=== PATIENT | male | born 1945 | race Hispanic/Latino ===

== ENCOUNTER 2017-05-05 11:12 | Emergency (ER) | payer MEDICARE ==
[2017-05-05 11:15] VITALS: BMI 32.9
[2017-05-05 11:17] VITALS: O2SAT 98
[2017-05-05] MEDS ORDERED: Silver Nitrate Topical - Stick TOP ONE (11:36)
--- NOTE | 2017-05-05 11:37 | ED PDOC ---
HPI: CCC, URI, Sore Throat Time Seen by Provider: 05/05/17 11:23 Chief Complaint (Nursing): ENT Problem Chief Complaint (Provider): Nasal bleeding History Per: Patient Additional Complaint(s): 71 yo mal, PMH of CAD, HTN, presents to ED with complaints of intermittent nasal bleeding from the right nare since . Pt reports that he has a history of epistaxis and he has been seen and cauterized by [facility] in the past. Pt using [place] nasal spray to help with the dry environment from his AC. Pt reports that the bleeding always seems to stop within minutes after holding pressure, and always starts in the morning. Pt started at 9 am today and arrives without any bleeding to ED room. No physical complaints offered at this time, vitals stable upon arrival. Past Medical History Reviewed: Nursing Documentation, Vital Signs Vital Signs: Last Vital Signs Temp 98 F 05/05/17 11:13 Pulse 70 05/05/17 11:13 Resp BP 150/79 05/05/17 11:13 Pulse Ox 98 05/05/17 11:42 - Medical History PMH: HTN, Hypothyroidism - Family History Family History: States: Unknown Family Hx - Living Arrangements Living Arrangements: With Family - Social History Current smoker - smoking cessation education provided: No Alcohol: None Drugs: Denies - Home Medications Home Medications: Ambulatory Orders Medication Instructions Recorded Calcitriol [Rocaltrol] 0.25 mcg PO DAILY 03/22/16 Furosemide [Lasix] 20 mg PO DAILY 03/22/16 Labetalol [Trandate] 800 mg PO TID 03/22/16 Levothyroxine [Synthroid] 75 mcg PO DAILY 03/22/16 Losartan [Cozaar] 100 mg PO DAILY 03/22/16 hydrALAZINE [hydralazine mg PO TID 03/22/16 Hydrochloride] - Allergies Allergies/Adverse Reactions: Allergies Allergy/AdvReac Type Severity Reaction Status Date / Time Penicillins Allergy RASH Verified 05/05/17 11:15 Review of Systems ROS Statement: Except As Marked, All Systems Reviewed And Found Negative ENT: Positive for: Nose Discharge Physical Exam - Reviewed Nursing Documentation Reviewed: Yes Vital Signs Reviewed: Yes - Physical Exam Appears: Positive for: Well, Non-toxic, No Acute Distress Head Exam: Positive for: ATRAUMATIC, NORMAL INSPECTION, NORMOCEPHALIC Skin: Positive for: Normal Color, Warm, DRY Eye Exam: Positive for: EOMI, Normal appearance, PERRL ENT: Positive for: Other ((+) bleeding site identified to right anterior nare) Neck: Positive for: Normal, Painless ROM Cardiovascular/Chest: Positive for: Regular Rate, Rhythm Respiratory: Positive for: CNT, Normal Breath Sounds Gastrointestinal/Abdominal: Positive for: Normal Exam, Bowel Sounds, Soft Back: Positive for: Normal Inspection Extremity: Positive for: Normal ROM Neurologic/Psych: Positive for: Alert, Oriented - ECG O2 Sat by Pulse Oximetry: 98 Medical Decision Making Medical Decision Making: Silver nitrate applied to anterior nare. no bleeding on re-eval. Stable for disharge ta this time, Pt advised to follow up with Dr. Arriola Disposition - Clinical Impression Clinical Impression: Epistaxis - Patient ED Disposition Is Patient to be Admitted: No - Disposition Referrals: Shane Arriola MD [Staff Provider] - Ericka Jordan [Outside] Disposition: Routine/Home Disposition Time: 12:33 Condition: STABLE Instructions: Nosebleed (ED) Forms: [facility] (Kiswahili)
[2017-05-05] MEDS ORDERED: Silver Nitrate Topical - Stick ONE (11:49)
[2017-05-05 12:46] VITALS: BP 128/78; PULSE 78; RESP 18; TEMP 97.5
== END 2017-05-05 12:46 | disposition home or self-care (01) ==
LOC: H.ER 11:12
DX: R04.0 Epistaxis (principal)

== ENCOUNTER 2017-06-13 05:58 | Emergency (ER) | payer MEDICARE ==
[2017-06-13 05:58] VITALS: BMI 32.9
[2017-06-13 06:17] VITALS: RESP 18; TEMP 99; O2SAT 99
[2017-06-13] MEDS ORDERED: Phenylephrine 0.5% Nasal Spray NAS STA (06:31)
[2017-06-13] MEDS ORDERED: Silver Nitrate Topical - Stick TOP ONE (06:37)
--- NOTE | 2017-06-13 06:55 | ED PDOC ---
HPI: Nose Bleed Time Seen by Provider: 06/13/17 06:15 Chief Complaint (Nursing): ENT Problem Chief Complaint (Provider): Epistaxis History Per: Patient History/Exam Limitations: no limitations Onset/Duration Of Symptoms: Hrs (4) Location Of Bleeding: Both Nares Symptoms Have Been: Episodic Severity: Moderate Additional Complaint(s): Patient is a 71 y/o male with a past medical history of hypertension and epistaxis presenting to the emergency department for right sided epistaxis x4 hours. Reports attempting to apply pressure and ice with minimal relief. Also reports similar episodes in the past which has been controlled by localized nasal packing and topical silver nitrate. Denies chest pain, cough, shortness of breath, or other complaints. Of note, patient takes baby aspirin and no other blood thinners. PCP: Dr. Sameer Ellsworth Past Medical History Reviewed: Historical Data, Nursing Documentation, Vital Signs Vital Signs: Last Vital Signs Temp 99.0 F 06/13/17 06:13 Pulse 68 06/13/17 06:13 Resp 18 06/13/17 06:13 BP 156/80 H 06/13/17 06:13 Pulse Ox 99 06/13/17 06:13 - Medical History PMH: HTN, Hypothyroidism Other PMH: Epistaxis - Surgical History Surgical History: No Surg Hx - Family History Family History: States: Unknown Family Hx - Social History Current smoker - smoking cessation education provided: No Ex-Smoker (has not smoked in the last 12 months): No Alcohol: None Drugs: Denies - Home Medications Home Medications: Ambulatory Orders Medication Instructions Recorded Calcitriol [Rocaltrol] 0.25 mcg PO DAILY 03/22/16 Furosemide [Lasix] 20 mg PO DAILY 03/22/16 Labetalol [Trandate] 800 mg PO TID 03/22/16 Levothyroxine [Synthroid] 75 mcg PO DAILY 03/22/16 Losartan [Cozaar] 100 mg PO DAILY 03/22/16 hydrALAZINE [hydralazine mg PO TID 03/22/16 Hydrochloride] - Allergies Allergies/Adverse Reactions: Allergies Allergy/AdvReac Type Severity Reaction Status Date / Time Penicillins Allergy RASH Verified 06/13/17 06:13 Review of Systems ROS Statement: Except As Marked, All Systems Reviewed And Found Negative ENT: Positive for: Other (right sided nose bleed) Cardiovascular: Negative for: Chest Pain Respiratory: Negative for: Cough, Shortness of Breath Physical Exam - Reviewed Nursing Documentation Reviewed: Yes Vital Signs Reviewed: Yes - Physical Exam Appears: Positive for: Non-toxic, No Acute Distress Head Exam: Positive for: ATRAUMATIC, NORMAL INSPECTION, NORMOCEPHALIC Skin: Positive for: Warm, Dry, Pallor (mild). Negative for: Normal Color Eye Exam: Positive for: Normal appearance ENT: Positive for: Other (Active epistaxis from right nare with trace bleeding from left nare) Neck: Positive for: Normal Cardiovascular/Chest: Positive for: Regular Rate, Rhythm. Negative for: Murmur Respiratory: Positive for: Normal Breath Sounds. Negative for: Accessory Muscle Use, Respiratory Distress Extremity: Positive for: Normal ROM. Negative for: Pedal Edema Neurologic/Psych: Positive for: Alert, Oriented (x3) - ECG O2 Sat by Pulse Oximetry: 99 (RA) Pulse Ox Interpretation: Normal Medical Decision Making Medical Decision Making: Time: 06:31 Initial impression: 71 y/o male with hypertension and history of epistaxis presenting with an episode of right sided epistaxis. Initial plan: Kalia-Synephrine 2 nasal sprays Silver Nitrate 1 swab Reevaluation Patient prefers not to use nasal packing and requests trial of topical silver nitrate. 06:45 Provider cleaned patient's right nare and has supplied silver nitrate and kalia- synephrine drops. Reevaluation pending. Scribe Attestation: Documented by Shirin Joshua, acting as a scribe for Antwon Hughes MD. Provider Scribe Attestation: All medical record entries made by the Scribe were at my direction and personally dictated by me. I have reviewed the chart and agree that the record accurately reflects my personal performance of the history, physical exam, medical decision making, and the department course for this patient. I have also personally directed, reviewed, and agree with the discharge instructions and disposition. Disposition - Clinical Impression Clinical Impression: Epistaxis - Patient ED Disposition Is Patient to be Admitted: Transfer of Care - Disposition Referrals: Prashant Pond MD [Staff Provider] - Laureano Ellsworth MD [Primary Care Provider] - Disposition: Transfer of Care Disposition Time: 07:00 Condition: STABLE Additional Instructions: Avoid blowing or "picking" your nose. Use nasal saline spray 2x daily to keep nasal mucosa moist. See ENT doctor for evaluation of recurrent nose bleeds. Instructions: Nosebleed (ED) Forms: [facility] (Greek) Patient Signed Over To: Galo Reynoso III
--- NOTE | 2017-06-13 07:05 | ED PDOC ---
- ECG O2 Sat by Pulse Oximetry: 99 (RA) Medical Decision Making Medical Decision Making: Patient signed out to provider at 7am pending re-eval 08:00 Upon provider reevaluation patient is feeling better and has no further epistaxis. Patient also has no bleeding to both nostrils. Patient only takes baby aspirin. Patient is medically stable and requires no further treatment in the ED at this time. Patient will be discharged home with referral to ENT. There is agreement to discharge plan. Return if symptoms persist or worsen. Scribe~Attestation Documented by Adrienne Mederos acting as a scribe for Galo Reynoso MD Provider~Attestation All medical record entries made by the Scribe were at my direction and personally dictated by me. I have reviewed the chart and agree that the record accurately reflects my personal performance of the history, physical exam, medical decision making, and the department course for this patient. I have also personally directed, reviewed, and agree with the discharge instructions and disposition. Disposition - Clinical Impression Clinical Impression: Epistaxis - Disposition Referrals: Prashant Pond MD [Staff Provider] - Laureano Ellsworth MD [Primary Care Provider] - Disposition: Routine/Home Disposition Time: 08:00 Condition: STABLE Additional Instructions: Avoid blowing or "picking" your nose. Use nasal saline spray 2x daily to keep nasal mucosa moist. See ENT doctor for evaluation of recurrent nose bleeds. Instructions: Nosebleed (ED) Forms: [facility] (Belarusian)
[2017-06-13 07:59] VITALS: BP 150/84; PULSE 70
== END 2017-06-13 08:08 | disposition home or self-care (01) ==
LOC: H.ER 05:58
DX: R04.0 Epistaxis (principal); E03.9 Hypothyroidism, unspecified; I10 Essential (primary) hypertension; Z88.0 Allergy status to penicillin

== ENCOUNTER 2017-07-10 07:11 | Emergency (ER) | payer MEDICARE ==
[2017-07-10 07:11] VITALS: BMI 32.9
[2017-07-10 08:48] LABS: BASO # 0.1 K/uL (0.0-0.2); BASO % 0.5 % (0.0-2.0); EOS # 0.1 K/uL (0.0-0.7); EOS % 0.6 % (0.0-4.0); HEMATOCRIT 34.9 % (35.0-51.0); LYMPH # 0.7 K/uL (1.0-4.3); LYMPH % 6.3 % (20.0-40.0); MEAN CELL VOLUME 88.3 fl (80.0-94.0); MEAN CORPUSCULAR HEMOGLOBIN 29.8 pg (27.0-31.0); MEAN CORPUSCULAR HGB CONC 33.7 g/dL (33.0-37.0); MEAN PLATELET VOLUME 9.4 fl (7.2-11.7); MONO # 0.5 K/uL (0.0-0.8); MONO % 4.1 % (0.0-10.0); NEUT # 10.2 K/uL (1.8-7.0); NEUT % 88.5 % (50.0-75.0); NRBC % 0.1 % (0.0-0.0); PLATELET COUNT 254 K/uL (130-400); RED CELL DISTRIBUTION WIDTH 14.2 % (11.5-14.5); WHITE BLOOD COUNT 11.5 K/uL (4.8-10.8)
[2017-07-10 08:58] LABS: BLOOD UREA NITROGEN 29 mg/dl (9-20); CALCIUM 9.2 mg/dL (8.4-10.2); CARBON DIOXIDE 25 mmol/L (22-30); CHLORIDE 99 mmol/L (98-107); GFR AFRICAN-AMERICAN > 60; GLUCOSE,RANDOM 110 mg/dL (75-110); SODIUM 137 mmol/l (132-148)
--- NOTE | 2017-07-10 09:03 | ED PDOC ---
HPI: Nose Bleed Time Seen by Provider: 07/10/17 07:21 Chief Complaint (Nursing): ENT Problem Chief Complaint (Provider): recurrent nose bleed\ History Per: Patient History/Exam Limitations: no limitations Onset/Duration Of Symptoms: Hrs (4.5) Location Of Bleeding: Right Nare Symptoms Have Been: Episodic Severity: Moderate Associated Symptoms: Lightheadedness. denies: Syncope Anticoagulant/Antiplatlet Use?: Yes (ASA) Recent Aspirin Use: Yes (Last Taken) Additional Complaint(s): 71yo male represents for right nare epistaxis started spontaneously around 4am. History significant for prior R nare epistaxis requiring ENT visit w cauterization about one month ago. He notes mild lightheadness but denies syncope, melena, vomiting, headache or facial trauma. Past Medical History Reviewed: Historical Data, Nursing Documentation, Vital Signs Vital Signs: Last Vital Signs Temp 98.0 F 07/10/17 07:28 Pulse 65 07/10/17 07:28 Resp 19 07/10/17 07:28 BP 141/78 07/10/17 07:28 Pulse Ox 98 07/10/17 07:28 - Medical History PMH: HTN, Hypothyroidism - Surgical History Surgical History: Tonsillectomy - Family History Family History: States: Unknown Family Hx - Social History Current smoker - smoking cessation education provided: No - Home Medications Home Medications: Ambulatory Orders Medication Instructions Recorded Calcitriol [Rocaltrol] 0.25 mcg PO DAILY 03/22/16 Furosemide [Lasix] 20 mg PO DAILY 03/22/16 Labetalol [Trandate] 800 mg PO TID 03/22/16 Levothyroxine [Synthroid] 75 mcg PO DAILY 03/22/16 Losartan [Cozaar] 100 mg PO DAILY 03/22/16 hydrALAZINE [hydralazine mg PO TID 03/22/16 Hydrochloride] - Allergies Allergies/Adverse Reactions: Allergies Allergy/AdvReac Type Severity Reaction Status Date / Time Penicillins Allergy RASH Verified 06/13/17 06:13 Review of Systems ROS Statement: Except As Marked, All Systems Reviewed And Found Negative Constitutional: Negative for: Fever, Chills ENT: Positive for: Nose Discharge, Nose Congestion, Other (epistaxis). Negative for: Ear Pain, Ear Discharge, Nose Pain, Mouth Swelling, Throat Pain Cardiovascular: Negative for: Chest Pain, Palpitations Respiratory: Negative for: Cough, Shortness of Breath Gastrointestinal: Negative for: Nausea, Vomiting Genitourinary Male: Negative for: Dysuria, Frequency Musculoskeletal: Negative for: Neck Pain Skin: Negative for: Rash, Lesions, Jaundice Neurological: Negative for: Weakness, Numbness Physical Exam - Reviewed Nursing Documentation Reviewed: Yes Vital Signs Reviewed: Yes - Physical Exam Appears: Positive for: Well, Non-toxic Head Exam: Positive for: ATRAUMATIC Skin: Positive for: Normal Color Eye Exam: Positive for: Normal appearance, EOMI, PERRL ENT: Positive for: Other (R nare epistaxis active bleeding anteriorly small loose clot in place). Negative for: Tonsillar Exudate - Laboratory Results Result Diagrams: 07/10/17 08:40 07/10/17 08:40 - ECG O2 Sat by Pulse Oximetry: 98 Medical Decision Making Medical Decision Making: labs reviewed and unremarkable except for mild leukocytosis and mild elev BUN Direct pressure did not result in sufficient hemostasis. Rhino rocket nasal tampon placed for hemostasis, observed for one hour and removed on request of patient, on nasal visualization small friable clot remains Disposition - Disposition Referrals: Laureano Ellsworth MD [Primary Care Provider] - Forms: [facility] (Andorran)
[2017-07-10 09:32] LABS: BASOPHIL 1 % (0-2); NEUTROPHIL 88 % (42-75); TOTAL CELLS COUNTED 100
[2017-07-10 09:41] LABS: PARTIAL THROMBOPLASTIN TIME 30.8 Seconds (25.6-37.1)
[2017-07-10 11:42] VITALS: BP 132/74; PULSE 78; RESP 18; TEMP 98.6; O2SAT 99
== END 2017-07-10 11:42 | disposition home or self-care (01) ==
LOC: H.ER 07:11 → SUPCPDRO 07:11 → H.ER 11:42
DX: R04.0 Epistaxis (principal)

== ENCOUNTER 2017-08-19 02:44 | Emergency (ER) | payer MEDICARE ==
[2017-08-19 02:44] VITALS: BMI 32.9
[2017-08-19 02:52] VITALS: RESP 18; TEMP 98.9; O2SAT 99
--- NOTE | 2017-08-19 03:18 | ED PDOC ---
HPI: CCC, URI, Sore Throat Time Seen by Provider: 08/19/17 02:58 Chief Complaint (Nursing): ENT Problem Chief Complaint (Provider): Epistaxis History Per: Patient Additional Complaint(s): Patient is a 71 y/o male with a past medical history of hypertension and epistaxis presenting to the emergency department for right sided epistaxis x 1.5 hours now. Reports attempting to apply pressure and ice with minimal relief. Also reports multiple episodes of the same in the past and most recently , he underwent cauterization by Dr. Alfaro in the OR at [facility]. Denies chest pain, cough, shortness of breath, or other complaints. Of note, patient takes baby aspirin and no other blood thinners. PCP: Dr. Sameer Ellsworth Past Medical History Reviewed: Historical Data, Nursing Documentation, Vital Signs Vital Signs: Last Vital Signs Temp 98.9 F 08/19/17 02:49 Pulse 81 08/19/17 02:49 Resp 18 08/19/17 02:49 BP 157/94 H 08/19/17 02:49 Pulse Ox 99 08/19/17 03:19 - Medical History PMH: Anemia, Colonic Polyps, HTN, Hypercholesterolemia, Hypothyroidism ( thyroidectomy thyroid cancer), Peripheral Edema (sometimes leftankle due to injury), Pneumonia (1989) - Surgical History Surgical History: Tonsillectomy - Family History Family History: States: Unknown Family Hx - Living Arrangements Living Arrangements: Alone - Social History Current smoker - smoking cessation education provided: No Alcohol: None Drugs: Denies - Home Medications Home Medications: Ambulatory Orders Medication Instructions Recorded Calcitriol [Rocaltrol] 0.25 mcg PO DAILY 03/22/16 Furosemide [Lasix] 20 mg PO DAILY 03/22/16 Labetalol [Trandate] 800 mg PO TID 03/22/16 Levothyroxine [Synthroid] 75 mcg PO DAILY 03/22/16 Losartan [Cozaar] 100 mg PO DAILY 03/22/16 hydrALAZINE [hydralazine 50 mg PO TID 03/22/16 Hydrochloride] Aspirin [Ecotrin] 81 mg PO DAILY 07/18/17 Atorvastatin [Lipitor] 20 mg PO DAILY 07/18/17 Clindamycin [Cleocin] 300 mg PO BID #14 cap 08/19/17 - Allergies Allergies/Adverse Reactions: Allergies Allergy/AdvReac Type Severity Reaction Status Date / Time Penicillins Allergy RASH Verified 08/19/17 02:49 Review of Systems ROS Statement: Except As Marked, All Systems Reviewed And Found Negative ENT: Positive for: Nose Discharge Physical Exam - Reviewed Nursing Documentation Reviewed: Yes Vital Signs Reviewed: Yes - Physical Exam Appears: Positive for: Non-toxic, No Acute Distress, Uncomfortable Head Exam: Positive for: ATRAUMATIC, NORMAL INSPECTION, NORMOCEPHALIC Skin: Positive for: Normal Color, Warm, DRY Eye Exam: Positive for: EOMI, Normal appearance, PERRL ENT: Positive for: Other ((+) active bleeding from right nare) Neck: Positive for: Normal, Painless ROM Cardiovascular/Chest: Positive for: Regular Rate, Rhythm Respiratory: Positive for: CNT, Normal Breath Sounds Gastrointestinal/Abdominal: Positive for: Normal Exam, Bowel Sounds, Soft Back: Positive for: Normal Inspection Extremity: Positive for: Normal ROM Neurologic/Psych: Positive for: Alert, Oriented - Laboratory Results Result Diagrams: 08/19/17 03:28 08/19/17 03:28 - ECG O2 Sat by Pulse Oximetry: 99 Medical Decision Making Medical Decision Making: Active bleeding upon arrival. Rhino rocket placed by ED MD, Dr. Montaño. Diagnostics ordered labs resulted and reviewed with Pt who demonstrated full understanding Pt doing well on re-eval. no complaints of pain or bleeding RX for Clindamycin written. importance of follow up with Dr. Arriola stressed. Rhino removal in 2 days. Disposition - Clinical Impression Clinical Impression: Epistaxis - Patient ED Disposition Is Patient to be Admitted: No - Disposition Referrals: Shane Arriola MD [Staff Provider] - Disposition: Routine/Home Disposition Time: 04:25 Condition: STABLE Prescriptions: Clindamycin [Cleocin] 300 mg PO BID #14 cap Instructions: Nosebleed (ED) Forms: From [facility] (Afghan)
[2017-08-19 03:34] LABS: BASO # 0.1 K/uL (0.0-0.2); BASO % 0.9 % (0.0-2.0); EOS # 0.3 K/uL (0.0-0.7); EOS % 2.3 % (0.0-4.0); HEMATOCRIT 31.8 % (35.0-51.0); LYMPH # 0.9 K/uL (1.0-4.3); LYMPH % 8.1 % (20.0-40.0); MEAN CELL VOLUME 89.5 fl (80.0-94.0); MEAN CORPUSCULAR HEMOGLOBIN 30.4 pg (27.0-31.0); MEAN PLATELET VOLUME 8.4 fl (7.2-11.7); MONO # 0.8 K/uL (0.0-0.8); MONO % 6.9 % (0.0-10.0); NEUT # 9.2 K/uL (1.8-7.0); NEUT % 81.8 % (50.0-75.0); NRBC % 0.1 % (0.0-0.0); PLATELET COUNT 219 K/uL (130-400); RED CELL DISTRIBUTION WIDTH 13.3 % (11.5-14.5); WHITE BLOOD COUNT 11.3 K/uL (4.8-10.8)
[2017-08-19 03:38] LABS: ALB/GLOB RATIO 1.3 (1.0-2.1); ALKALINE PHOSPHATASE 80 U/L (38-126); ALT/SGPT 56 U/L (21-72); AST/SGOT 45 U/L (17-59); BILIRUBIN,TOTAL 0.4 mg/dl (0.2-1.3); BLOOD UREA NITROGEN 36 mg/dl (9-20); CALCIUM 9.4 mg/dL (8.4-10.2); CARBON DIOXIDE 28 mmol/L (22-30); CHLORIDE 99 mmol/L (98-107); GFR AFRICAN-AMERICAN > 60; GLUCOSE,RANDOM 97 mg/dL (75-110); SODIUM 141 mmol/l (132-148); TOTAL PROTEIN 7.6 G/DL (6.3-8.2)
[2017-08-19 03:40] LABS: PARTIAL THROMBOPLASTIN TIME 30.7 Seconds (25.6-37.1)
[2017-08-19 05:12] LABS: EOSINOPHIL 2 % (0-7); NEUTROPHIL 91 % (42-75); TOTAL CELLS COUNTED 100
[2017-08-19 05:42] VITALS: BP 148/79; PULSE 71
== END 2017-08-19 05:35 | disposition home or self-care (01) ==
LOC: H.ER 02:44
DX: R04.0 Epistaxis (principal); E03.9 Hypothyroidism, unspecified; E78.00 Pure hypercholesterolemia, unspecified; I10 Essential (primary) hypertension; Z79.82 Long term (current) use of aspirin; Z85.850 Personal history of malignant neoplasm of thyroid; Z88.0 Allergy status to penicillin

== ENCOUNTER 2017-08-24 11:31 | Observation (INO) | payer MEDICARE ==
[2017-08-24 11:31] VITALS: BMI 32.9
--- NOTE | 2017-08-24 11:50 | ED PDOC ---
HPI: Chest Pain Time Seen by Provider: 08/24/17 11:41 Chief Complaint (Nursing): Shortness Of Breath History Per: Patient Onset/Duration Of Symptoms: Days (2) Current Symptoms Are (Timing): Intermittent Episodes Severity: Mild Pain Scale Rating Of: 2 Quality: Tightness Associated Symptoms: Dyspnea Additional Complaint(s): SOB assoc with chest tightness x 2 days. Denies cough or fever. Recently seen by ENT for epistaxis, had cauterization. No new bleed. Past Medical History Vital Signs: Last Vital Signs Temp 98.1 F 08/24/17 11:38 Pulse 66 08/24/17 11:38 Resp 16 08/24/17 12:03 BP 114/44 L 08/24/17 11:38 Pulse Ox 99 08/24/17 12:03 - Medical History PMH: Anemia, Colonic Polyps, HTN, Hypercholesterolemia, Hypothyroidism ( thyroidectomy thyroid cancer), Peripheral Edema (sometimes leftankle due to injury), Pneumonia (1989) Denies: Chronic Kidney Disease - Surgical History Surgical History: Tonsillectomy Other surgeries: Aortic aneurysm repair - Family History Family History: States: Unknown Family Hx - Immunization History Hx Tetanus Toxoid Vaccination: No Hx Influenza Vaccination: No Hx Pneumococcal Vaccination: No - Home Medications Home Medications: Ambulatory Orders Medication Instructions Recorded Calcitriol [Rocaltrol] 0.5 mcg PO DAILY 03/22/16 Furosemide [Lasix] 20 mg PO DAILY 03/22/16 Labetalol [Trandate] 800 mg PO TID 03/22/16 Levothyroxine [Synthroid] 175 mcg PO DAILY 03/22/16 Losartan [Cozaar] 100 mg PO DAILY 03/22/16 hydrALAZINE [Apresoline] 25 mg PO TID 03/22/16 Aspirin [Ecotrin] 81 mg PO DAILY 07/18/17 Atorvastatin [Lipitor] 20 mg PO DAILY 07/18/17 Clindamycin [Cleocin] 300 mg PO BID #14 cap 08/19/17 Ascorbic Acid [Vitamin C] 600 mg PO DAILY 08/21/17 Calcium Carbonate [Calcium] 500 mg PO DAILY 08/21/17 Folic Acid 0.8 mg PO DAILY 08/21/17 L. Acidophilus/Bifid. Animalis 2 each PO DAILY 08/21/17 [Probiotic 5 Billion Cell Cap] Kdhwg-[id number] Ethyl Esters [OMEGA 3] 1,000 mg PO DAILY 08/21/17 Super B Complex 1 tab PO DAILY 08/21/17 Ubidecarenone/Vit E Acet [Co Q-10 1 each PO DAILY 08/21/17 100 mg Softgel] - Allergies Allergies/Adverse Reactions: Allergies Allergy/AdvReac Type Severity Reaction Status Date / Time Penicillins Allergy RASH Verified 08/24/17 11:37 Review of Systems ROS Statement: Except As Marked, All Systems Reviewed And Found Negative Constitutional: Negative for: Fever Cardiovascular: Positive for: Chest Pain Respiratory: Positive for: Shortness of Breath Physical Exam - Reviewed Nursing Documentation Reviewed: Yes Vital Signs Reviewed: Yes - Physical Exam Appears: Positive for: Non-toxic, No Acute Distress Head Exam: Positive for: ATRAUMATIC, NORMAL INSPECTION, NORMOCEPHALIC Skin: Positive for: Normal Color, Warm, DRY Eye Exam: Positive for: EOMI, Normal appearance, PERRL ENT: Positive for: Normal ENT Inspection Neck: Positive for: Normal, Painless ROM Cardiovascular/Chest: Positive for: Regular Rate, Rhythm Respiratory: Positive for: CNT, Normal Breath Sounds Gastrointestinal/Abdominal: Positive for: Normal Exam, Bowel Sounds, Soft Back: Positive for: Normal Inspection Extremity: Positive for: Normal ROM Neurologic/Psych: Positive for: Alert, Oriented - Laboratory Results Result Diagrams: 08/24/17 11:45 08/24/17 11:45 - ECG O2 Sat by Pulse Oximetry: 98 Disposition - Clinical Impression Clinical Impression: Chest pain - Patient ED Disposition Is Patient to be Admitted: Yes - Disposition Disposition Time: 14:11 Condition: FAIR Forms: [facility] (Romanian) - Pt Status Changed To: Hospital Disposition Of: Observation - POA Present On Arrival: None
[2017-08-24 12:09] LABS: BASO # 0.1 K/uL (0.0-0.2); BASO % 0.8 % (0.0-2.0); EOS # 0.1 K/uL (0.0-0.7); EOS % 1.4 % (0.0-4.0); HEMATOCRIT 30.3 % (35.0-51.0); LYMPH # 0.6 K/uL (1.0-4.3); LYMPH % 6.9 % (20.0-40.0); MEAN CELL VOLUME 89.2 fl (80.0-94.0); MEAN CORPUSCULAR HEMOGLOBIN 29.3 pg (27.0-31.0); MEAN CORPUSCULAR HGB CONC 32.9 g/dL (33.0-37.0); MEAN PLATELET VOLUME 8.3 fl (7.2-11.7); MONO # 0.6 K/uL (0.0-0.8); MONO % 6.3 % (0.0-10.0); NEUT # 7.5 K/uL (1.8-7.0); NEUT % 84.6 % (50.0-75.0); NRBC % 0.1 % (0.0-0.0); RED CELL DISTRIBUTION WIDTH 13.7 % (11.5-14.5); WHITE BLOOD COUNT 8.9 K/uL (4.8-10.8)
[2017-08-24 12:19] LABS: ALB/GLOB RATIO 1.3 (1.0-2.1); ALKALINE PHOSPHATASE 69 U/L (38-126); ALT/SGPT 34 U/L (21-72); AST/SGOT 30 U/L (17-59); BILIRUBIN,TOTAL 0.5 mg/dl (0.2-1.3); BLOOD UREA NITROGEN 22 mg/dl (9-20); CALCIUM 9.1 mg/dL (8.4-10.2); CARBON DIOXIDE 23 mmol/L (22-30); CHLORIDE 97 mmol/L (98-107); GFR AFRICAN-AMERICAN > 60; GLUCOSE,RANDOM 113 mg/dL (75-110); SODIUM 135 mmol/l (132-148); TOTAL PROTEIN 7.7 G/DL (6.3-8.2)
--- NOTE | 2017-08-24 14:20 | RAD ---
HISTORY: SOB COMPARISON: No prior study available for comparison TECHNIQUE: Chest PA and lateral FINDINGS: LUNGS: The interstitial markings are somewhat increased particularly in the perihilar regions. Findings could represent developing and or mild chronic compensated pulmonary edema/ CHF. Clinical correlation recommended. PLEURA: No significant pleural effusion identified. No pneumothorax apparent. CARDIOVASCULAR: Sternotomy wires are present. Heart appears mildly enlarged. OSSEOUS STRUCTURES: Mild multilevel degenerative spondylosis of the thoracic spine. VISUALIZED UPPER ABDOMEN: Normal. OTHER FINDINGS: None. IMPRESSION: The interstitial markings are somewhat increased particularly in the perihilar regions. Findings could represent developing and or mild chronic compensated pulmonary edema/ CHF. Clinical correlation recommended.
--- NOTE | 2017-08-24 15:24 | CP.PCM.HP ---
History of Present Illness - History of Present Illness History of Present Illness: CC: SOB This is a 71 yo male with a pmh of hypertension on Labetalol, Hydralazine, and Cozaar, hypercholesterolemia for which he takes Crestor, episodes of epistaxis for which he had an ablation performed at [facility] about a week and a half ago. He also has histeroy of hypothyroidism after having a thyroidectomy for thyroid cancer. The patient presents to the ED with the complaint of some shortness of breath and chest tightness over the last week. He states that the shortness of breath is associated with exertion; he does not have any at rest. In the ED, the patient was seen to be hemodynamically stable. EKG shows no abnormalities. Troponin is negative. He is found to have a Hg of 10.0 which is at his baseline. The rest of his labwork is unremarkable. CXR shows mild prominence of interstitial markings in the perihilar regions; however there is no pleural effusions or pneumothorax. The patient is to be placed on telemetry observation overnight to r/o acute coronary syndrome. Present on Admission - Present on Admission Any Indicators Present on Admission: No Review of Systems - Hematologic/Lymphatic Additional comments: GENERAL/CONSTITUTIONAL: The patient denies fever, fatigue, weakness, weight gain or weight loss. HEAD, EYES, EARS, NOSE AND THROAT: Eyes - The patient denies pain, redness, loss of vision, double or blurred vision, flashing lights or spots, dryness, Ears, nose, mouth and throat. The patient denies ringing in the ears, loss of hearing, nosebleeds, loss of sense of smell, dry sinuses, sinusitis, post nasal drip, CARDIOVASCULAR: The patient admits to some vague chest tightness. He denies chest pain, chest pressure, or irregular heartbeats, RESPIRATORY: The patient admits to some shortness of breath on exertion. The patient denies chronic dry cough, coughing up blood, coughing up mucus, wheezing. GASTROINTESTINAL: The patient denies decreased appetite, nausea, vomiting, vomiting blood or coffee ground material, heartburn, regurgitation, diarrhea, constipation, gas, blood in the stools, black tarry stools. GENITOURINARY: The patient denies difficult urination, pain or burning with urination, blood in the urine, frequency, or urgency MUSCULOSKELETAL: The patient denies arm, buttock, thigh or calf cramps. No joint or muscle pain. No muscle weakness or tenderness. No joint swelling, neck pain, back pain. SKIN: The patient denies easy bruising, skin redness, skin rash, hives, sensitivity to sun exposure, tightness, nodules or bumps, hair loss, color changes in the hands or feet with cold. NEUROLOGIC: The patient denies headache, dizziness, fainting, muscle spasm, loss of consciousness, sensitivity or pain in the hands and feet or memory loss. PSYCHIATRIC: The patient denies anxiety, depression, or thoughts of suicide. ENDOCRINE: The patient denies intolerance to hot or cold temperature, flushing, fingernail changes, increased thirst, or increased salt intake HEMATOLOGIC/LYMPHATIC: The patient denies anemia, bleeding tendency or clotting tendency. ALLERGIC/IMMUNOLOGIC: The patient denies rhinitis, asthma, skin sensitivity, latex allergies or sensitivity. Past Patient History - Infectious Disease Hx of Infectious Diseases: None - Past Medical History & Family History Past Medical History?: Yes - Past Social History Smoking Status: Never Smoked - CARDIAC Hx Hypercholesterolemia: Yes Hx Hypertension: Yes Hx Peripheral Edema: Yes (sometimes leftankle due to injury) - PULMONARY Hx Pneumonia: Yes (1989) - NEUROLOGICAL Hx Neurological Disorder: No - HEENT Hx HEENT Problems: Yes Hx Cataracts: Yes Hx Epistaxis: Yes - RENAL Hx Chronic Kidney Disease: No - ENDOCRINE/METABOLIC Hx Hypothyroidism: Yes (thyroidectomy thyroid cancer) - HEMATOLOGICAL/ONCOLOGICAL Hx Anemia: Yes - INTEGUMENTARY Hx Dermatological Problems: No - MUSCULOSKELETAL/RHEUMATOLOGICAL Hx Musculoskeletal Disorders: Yes Hx Back Pain: Yes Hx Falls: No Hx Herniated Disk: Yes (lumbar) - GASTROINTESTINAL Hx Gastrointestinal Disorders: No - GENITOURINARY/GYNECOLOGICAL Hx Genitourinary Disorders: Yes Hx Prostate Cancer: Yes (SURGICAL CORRECTION) - PSYCHIATRIC Hx Psychophysiologic Disorder: No Hx Substance Use: No - SURGICAL HISTORY Hx Tonsillectomy: Yes - ANESTHESIA Hx Anesthesia: Yes Hx Anesthesia Reactions: No Hx Malignant Hyperthermia: No Meds Allergies/Adverse Reactions: Allergies Allergy/AdvReac Type Severity Reaction Status Date / Time Penicillins Allergy RASH Verified 08/24/17 11:37 Physical Exam - ENT Exam Additional comments: Physical exam: Constitutional- cooperative, awake, alert. Head- NCAT, PERRL Eye- PERRL, normal accommodation ENT- normal exam, MMM. Neck- normal inspection, supple, no JVD Respiratory- CTAB, no wheezes rales rhonchi Cardiovascular- RRR, +S1, +S2 no MRG GI/Abdominal- normal bowel sounds, soft, no mass, no hsm Skin- warm, dry Extremities Exam- normal capillary refill, normal inspection Neurological Exam- alert, stable gait Psych- normal mood, normal affect Results - Vital Signs Recent Vital Signs: Last Vital Signs Temp 98.0 F 08/24/17 14:34 Pulse 64 08/24/17 14:34 Resp 16 08/24/17 14:34 BP 132/65 08/24/17 14:34 Pulse Ox 98 08/24/17 14:34 - Labs Result Diagrams: 08/24/17 11:45 08/24/17 11:45 Labs: Laboratory Results - last 24 hr 08/24/17 08/24/17 11:45 11:45 WBC 8.9 RBC 3.39 L Hgb 10.0 L Hct 30.3 L MCV 89.2 MCH 29.3 MCHC 32.9 L RDW 13.7 Plt Count 235 MPV 8.3 Neut % (Auto) 84.6 H Lymph % (Auto) 6.9 L [place] % (Auto) 6.3 Eos % (Auto) 1.4 Baso % (Auto) 0.8 Neut # 7.5 H Lymph # 0.6 L [place] # 0.6 Eos # 0.1 Baso # 0.1 Sodium 135 Potassium 4.0 Chloride 97 L Carbon Dioxide 23 Anion Gap 19 BUN 22 H Creatinine 1.4 Est GFR ( Amer) > 60 Est GFR (Non-Af Amer) 50 Random Glucose 113 H Calcium 9.1 Total Bilirubin 0.5 AST 30 ALT 34 Alkaline Phosphatase 69 Troponin I < 0.0120 Total Protein 7.7 Albumin 4.4 Globulin 3.3 Albumin/Globulin Ratio 1.3 Assessment & Plan - Assessment and Plan (Free Text) Plan: ASSESSMENT/PLAN 71 yo male with hx of htn, hypercholesterolemia, presenting to the ED with sob and chest tightness, now asymptomatic. 1) SOB on exertion associated with chest tightness, asymptomatic at rest. Possibly due to fluid overload with evidence of increased interstitial markings on CXR. Doubt PE as no tachycardia, fever, SOB at rest, or hx of DVT - Place on tele/obs - Cardiology consultation called from ED - Continue Lasix - EKG in AM - Heart healthy diet - Cycle troponins. Obtain HGA1C - Nitrostat PRN for chest pain 2) Hypertension- under control - Continue Labetalol - Continue Hydralazine - Continue Lasix - Continue Cozaar 3) Hypercholesterolemia - Continue Crestor 4) Anemia of chronic disease - Stable, at baseline 5) Recurrent epistaxis s/p ablation - No epistaxis as this time - Continue to monitor 6) DVT prophylaxis - SCDs due to epistaxis and risk of bleeding, anticoagulation is contraindicated
[2017-08-25 05:07] VITALS: RESP 18
[2017-08-25] MEDS ORDERED: Levothyroxine 175 MCG TAB PO SCH (07:30)
[2017-08-25 08:00] VITALS: TEMP 98.4
--- NOTE | 2017-08-25 08:28 | CP.PCM.CON ---
History of Present Illness - History of Present Illness History of Present Illness: 71 year old male with PMHx of hypertension seen in the ED complaining of severe right shoulder pain. Patient is AAO x 3, seen resting in bed. Patient states that the pain in his arm has been present for many months and has been increasingly painful over the last few weeks. 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 Patient states that he has had a knee surgery and a wrist surgery in the past. He denies any adverse affects to the anesthesia at that time. He states that he has been NPO since before midnight last night. He denies use of any tobacco products, alcohol or illicit drugs. Patient denies any further health problems at this time. Past Patient History - Infectious Disease Hx of Infectious Diseases: None - Past Medical History & Family History Past Medical History?: Yes - Past Social History Smoking Status: Never Smoked - CARDIAC Hx Hypercholesterolemia: Yes Hx Hypertension: Yes Hx Peripheral Edema: Yes (sometimes leftankle due to injury) - PULMONARY Hx Pneumonia: Yes (1989) - NEUROLOGICAL Hx Neurological Disorder: No - HEENT Hx HEENT Problems: Yes - RENAL Hx Chronic Kidney Disease: No - ENDOCRINE/METABOLIC Hx Hypothyroidism: Yes (thyroidectomy thyroid cancer) - HEMATOLOGICAL/ONCOLOGICAL Hx AIDS: No Hx Anemia: Yes Hx Human Immunodeficiency Virus (HIV): No - INTEGUMENTARY Hx Dermatological Problems: No - MUSCULOSKELETAL/RHEUMATOLOGICAL Hx Falls: No - GASTROINTESTINAL Hx Gastrointestinal Disorders: No - GENITOURINARY/GYNECOLOGICAL Hx Genitourinary Disorders: Yes Hx Prostate Cancer: Yes - PSYCHIATRIC Hx Substance Use: No - SURGICAL HISTORY Hx Appendectomy: Yes Hx Tonsillectomy: Yes Other/Comment: prostate surgery - ANESTHESIA Hx Anesthesia: Yes Hx Anesthesia Reactions: No Hx Malignant Hyperthermia: No Meds Allergies/Adverse Reactions: Allergies Allergy/AdvReac Type Severity Reaction Status Date / Time Penicillins Allergy RASH Verified 08/24/17 11:37 - Medications Medications: Current Medications Acetaminophen (Tylenol 325mg Tab) 650 mg PO Q6 PRN PRN Reason: Pain, Mild (1-3) Aspirin (Ecotrin) 81 mg PO DAILY [facility] Atorvastatin Calcium (Lipitor) 20 mg PO DAILY [facility] Calcitriol (Rocaltrol) 0.5 mcg PO DAILY [facility] Calcium Carbonate (Oscal) 500 mg PO DAILY [facility] Clindamycin HCl (Cleocin) 300 mg PO BID [facility] PRN Reason: Protocol Last Admin: 08/24/17 17:30 Dose: 300 mg Furosemide (Lasix) 20 mg PO DAILY [facility] Home Med (Ascorbic Acid [Vitamin C]) 600 mg PO DAILY [facility] Home Med (Folic Acid [Folic Acid]) 0.8 mg PO DAILY [facility] Home Med (L. Acidophilus/Bifid. Animalis [Probiotic 5 Billion Cell Cap]) 2 each PO DAILY [facility] Home Med (Sszke-2-Oqcl Ethyl Esters [Anna 3]) 1,000 mg PO DAILY [facility] Home Med (Super B Complex) 1 tab PO DAILY [facility] Home Med (Ubidecarenone/Vit E Acet [Co Q-10 100 Mg Softgel]) 1 each PO DAILY [facility] Hydralazine HCl (Apresoline) 25 mg PO TID [facility] Last Admin: 08/24/17 17:22 Dose: 25 mg Labetalol HCl (Trandate) 800 mg PO TID [facility] Last Admin: 08/24/17 17:20 Dose: 800 mg Levothyroxine Sodium (Synthroid) 175 mcg PO ACB [facility] Losartan Potassium (Cozaar) 100 mg PO DAILY [facility] Nitroglycerin (Nitrostat Sl Tab) 0.4 mg SL Q5M PRN PRN Reason: Pain, moderate (4-7) Physical Exam - Constitutional Appears: Well, Non-toxic, No Acute Distress - Head Exam Head Exam: NORMAL INSPECTION, NORMOCEPHALIC - Eye Exam Eye Exam: EOMI, Normal appearance, PERRL Pupil Exam: NORMAL ACCOMODATION, PERRL - ENT Exam ENT Exam: Mucous Membranes Moist - Neck Exam Neck exam: Positive for: Normal Inspection. Negative for: Tenderness - Cardiovascular Exam Cardiovascular Exam: Irregular Rhythm - GI/Abdominal Exam GI & Abdominal Exam: Normal Bowel Sounds. absent: Distended, Firm - Rectal Exam Rectal Exam: Deferred - Extremities Exam Additional comments: Pain with ROM of right shoulder, especially with extension - Neurological Exam Neurological exam: Alert, Oriented x3 - Psychiatric Exam Psychiatric exam: Normal Affect, Normal Mood - Skin Skin Exam: Intact, Normal Color, Warm Results - Vital Signs Recent Vital Signs: Last Vital Signs Temp 98.4 F 08/25/17 07:59 Pulse 60 08/25/17 07:59 Resp 18 08/25/17 07:59 BP 137/66 08/25/17 07:59 Pulse Ox 97 08/25/17 07:59 - Labs Result Diagrams: 08/24/17 11:45 08/24/17 11:45 Labs: Laboratory Results - last 24 hr 08/24/17 08/24/17 08/24/17 11:45 11:45 19:30 WBC 8.9 RBC 3.39 L Hgb 10.0 L Hct 30.3 L MCV 89.2 MCH 29.3 MCHC 32.9 L RDW 13.7 Plt Count 235 MPV 8.3 Neut % (Auto) 84.6 H Lymph % (Auto) 6.9 L [place] % (Auto) 6.3 Eos % (Auto) 1.4 Baso % (Auto) 0.8 Neut # 7.5 H Lymph # 0.6 L [place] # 0.6 Eos # 0.1 Baso # 0.1 Sodium 135 Potassium 4.0 Chloride 97 L Carbon Dioxide 23 Anion Gap 19 BUN 22 H Creatinine 1.4 Est GFR ( Amer) > 60 Est GFR (Non-Af Amer) 50 Random Glucose 113 H Calcium 9.1 Total Bilirubin 0.5 AST 30 ALT 34 Alkaline Phosphatase 69 Troponin I < 0.0120 < 0.0120 Total Protein 7.7 Albumin 4.4 Globulin 3.3 Albumin/Globulin Ratio 1.3 08/25/17 04:20 WBC RBC Hgb Hct MCV MCH MCHC RDW Plt Count MPV Neut % (Auto) Lymph % (Auto) [place] % (Auto) Eos % (Auto) Baso % (Auto) Neut # Lymph # [place] # Eos # Baso # Sodium Potassium Chloride Carbon Dioxide Anion Gap BUN Creatinine Est GFR ( Amer) Est GFR (Non-Af Amer) Random Glucose Calcium Total Bilirubin AST ALT Alkaline Phosphatase Troponin I < 0.0120 Total Protein Albumin Globulin Albumin/Globulin Ratio Assessment & Plan - Assessment and Plan (Free Text) Assessment: 71 year old male seen in the ED for painful right shoulder
--- NOTE | 2017-08-25 08:40 | CP.PCM.HP ---
History of Present Illness - History of Present Illness History of Present Illness: 71 year old male with PMHx of hypertension seen in the ED complaining of severe right shoulder pain. Patient is AAO x 3, seen resting in bed. Patient states that the pain in his arm has been present for many months and has been increasingly painful over the last few weeks. 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 Patient states that he has had a knee surgery and a wrist surgery in the past. He denies any adverse affects to the anesthesia at that time. He states that he has been NPO since before midnight last night. He denies use of any tobacco products, alcohol or illicit drugs. Patient denies any further health problems at this time. 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 Alcohol: None Drugs: Denies Home Situation {Lives}: With Family Domestic Violence: Negative - CARDIAC Hx Hypercholesterolemia: Yes Hx Hypertension: Yes Hx Peripheral Edema: Yes (sometimes leftankle due to injury) - PULMONARY Hx Pneumonia: Yes (1989) - NEUROLOGICAL Hx Neurological Disorder: No - HEENT Hx HEENT Problems: Yes - RENAL Hx Chronic Kidney Disease: No - ENDOCRINE/METABOLIC Hx Hypothyroidism: Yes (thyroidectomy thyroid cancer) - HEMATOLOGICAL/ONCOLOGICAL Hx AIDS: No Hx Anemia: Yes Hx Human Immunodeficiency Virus (HIV): No - INTEGUMENTARY Hx Dermatological Problems: No - MUSCULOSKELETAL/RHEUMATOLOGICAL Hx Falls: No - GASTROINTESTINAL Hx Gastrointestinal Disorders: No - GENITOURINARY/GYNECOLOGICAL Hx Genitourinary Disorders: Yes Hx Prostate Cancer: Yes - PSYCHIATRIC Hx Substance Use: No - SURGICAL HISTORY Hx Appendectomy: Yes Hx Tonsillectomy: Yes Other/Comment: prostate surgery - ANESTHESIA Hx Anesthesia: Yes Hx Anesthesia Reactions: No Hx Malignant Hyperthermia: No Meds Allergies/Adverse Reactions: Allergies Allergy/AdvReac Type Severity Reaction Status Date / Time Penicillins Allergy RASH Verified 08/24/17 11:37 Physical Exam - Constitutional Appears: Well, Non-toxic, No Acute Distress - Head Exam Head Exam: NORMAL INSPECTION, NORMOCEPHALIC - Eye Exam Eye Exam: EOMI, PERRL Pupil Exam: NORMAL ACCOMODATION, PERRL - ENT Exam ENT Exam: Mucous Membranes Moist - Neck Exam Neck exam: Positive for: Normal Inspection. Negative for: Tenderness - GI/Abdominal Exam GI & Abdominal Exam: Normal Bowel Sounds. absent: Distended, Firm - Rectal Exam Rectal Exam: Deferred - Extremities Exam Additional comments: pain with ROM or right shoulder, worse with extension - Neurological Exam Neurological exam: Alert, Oriented x3 - Psychiatric Exam Psychiatric exam: Normal Affect, Normal Mood - Skin Skin Exam: Intact, Normal Color, Warm Results - Vital Signs Recent Vital Signs: Last Vital Signs Temp 98.4 F 08/25/17 07:59 Pulse 65 08/25/17 08:36 Resp 18 08/25/17 07:59 BP 137/66 08/25/17 08:36 Pulse Ox 97 08/25/17 07:59 - Labs Result Diagrams: 08/24/17 11:45 08/24/17 11:45 Labs: Laboratory Results - last 24 hr 08/24/17 08/24/17 08/24/17 11:45 11:45 19:30 WBC 8.9 RBC 3.39 L Hgb 10.0 L Hct 30.3 L MCV 89.2 MCH 29.3 MCHC 32.9 L RDW 13.7 Plt Count 235 MPV 8.3 Neut % (Auto) 84.6 H Lymph % (Auto) 6.9 L [place] % (Auto) 6.3 Eos % (Auto) 1.4 Baso % (Auto) 0.8 Neut # 7.5 H Lymph # 0.6 L [place] # 0.6 Eos # 0.1 Baso # 0.1 Sodium 135 Potassium 4.0 Chloride 97 L Carbon Dioxide 23 Anion Gap 19 BUN 22 H Creatinine 1.4 Est GFR ( Amer) > 60 Est GFR (Non-Af Amer) 50 Random Glucose 113 H Calcium 9.1 Total Bilirubin 0.5 AST 30 ALT 34 Alkaline Phosphatase 69 Troponin I < 0.0120 < 0.0120 Total Protein 7.7 Albumin 4.4 Globulin 3.3 Albumin/Globulin Ratio 1.3 08/25/17 04:20 WBC RBC Hgb Hct MCV MCH MCHC RDW Plt Count MPV Neut % (Auto) Lymph % (Auto) [place] % (Auto) Eos % (Auto) Baso % (Auto) Neut # Lymph # [place] # Eos # Baso # Sodium Potassium Chloride Carbon Dioxide Anion Gap BUN Creatinine Est GFR ( Amer) Est GFR (Non-Af Amer) Random Glucose Calcium Total Bilirubin AST ALT Alkaline Phosphatase Troponin I < 0.0120 Total Protein Albumin Globulin Albumin/Globulin Ratio - EKG Data EKG comments: Premature Ventricular Contractions Assessment & Plan - Assessment and Plan (Free Text) Assessment: 71 year old male seen in ED for worsening right shoulder pain Plan: 1. Right shoulder pain Consult placed for ortho Shoulder xray taken, read pending IV morphine ordered 2. Hypertension BP well controlled at 137/66 Continue at home medications: Lisinopril, 3. PVCs EKG ordered: PVC's noted 4. DVT Prophylaxis SCDs ordered
[2017-08-25] MEDS ORDERED: Multivitamin With Minerals Tab PO SCH (09:00)
[2017-08-25] MEDS ORDERED: Omega-3-Acid Ethyl Esters 1 GM Cap PO SCH (09:00)
[2017-08-25] MEDS ORDERED: UBIDECARENONE PO SCH (09:00)
[2017-08-25] MEDS ORDERED: [UNRECOGNIZED DRUG - OTHER] PO SCH (09:00)
[2017-08-25] MEDS ORDERED: FOLIC ACID 0.8 MG PO SCH (09:00)
[2017-08-25] MEDS ORDERED: VIT E ACET PO SCH (09:00)
[2017-08-25 11:56] VITALS: BP 131/91; PULSE 78; O2SAT 99
--- NOTE | 2017-08-25 13:42 | CARD ---
APPROVED REPORT EKG Measurement Heart [id number] 160P17 [id number] <Conclusion> Normal sinus rhythm Incomplete right bundle branch block Left anterior fascicular block Minimal voltage criteria for LVH, may be normal variant Abnormal ECG
--- NOTE | 2017-08-25 14:05 | CP.PCM.DIS ---
Provider - Provider Date of Admission: 08/24/17 14:10 Attending physician: Ryder Cuello DO Time Spent in preparation of Discharge (in minutes): 25 Hospital Course - Lab Results Lab Results: Most Recent Lab Values WBC 8.9 K/uL (4.8-10.8) 08/24/17 11:45 RBC 3.39 Mil/uL (4.40-5.90) L 08/24/17 11:45 Hgb 10.0 g/dL (12.0-18.0) L 08/24/17 11:45 Hct 30.3 % (35.0-51.0) L 08/24/17 11:45 MCV 89.2 fl (80.0-94.0) 08/24/17 11:45 MCH 29.3 pg (27.0-31.0) 08/24/17 11:45 MCHC 32.9 g/dL (33.0-37.0) L 08/24/17 11:45 RDW 13.7 % (11.5-14.5) 08/24/17 11:45 Plt Count 235 K/uL (130-400) 08/24/17 11:45 MPV 8.3 fl (7.2-11.7) 08/24/17 11:45 Neut % (Auto) 84.6 % (50.0-75.0) H 08/24/17 11:45 Lymph % (Auto) 6.9 % (20.0-40.0) L 08/24/17 11:45 [place] % (Auto) 6.3 % (0.0-10.0) 08/24/17 11:45 Eos % (Auto) 1.4 % (0.0-4.0) 08/24/17 11:45 Baso % (Auto) 0.8 % (0.0-2.0) 08/24/17 11:45 Neut # 7.5 K/uL (1.8-7.0) H 08/24/17 11:45 Lymph # 0.6 K/uL (1.0-4.3) L 08/24/17 11:45 [place] # 0.6 K/uL (0.0-0.8) 08/24/17 11:45 Eos # 0.1 K/uL (0.0-0.7) 08/24/17 11:45 Baso # 0.1 K/uL (0.0-0.2) 08/24/17 11:45 Sodium 135 mmol/l (132-148) 08/24/17 11:45 Potassium 4.0 MMOL/L (3.6-5.0) 08/24/17 11:45 Chloride 97 mmol/L (98-107) L 08/24/17 11:45 Carbon Dioxide 23 mmol/L (22-30) 08/24/17 11:45 Anion Gap 19 (10-20) 08/24/17 11:45 BUN 22 mg/dl (9-20) H 08/24/17 11:45 Creatinine 1.4 mg/dl (0.8-1.5) 08/24/17 11:45 Est GFR ( Amer) > 60 08/24/17 11:45 Est GFR (Non-Af Amer) 50 08/24/17 11:45 Random Glucose 113 mg/dL (75-110) H 08/24/17 11:45 Hemoglobin A1c 5.2 % (4.2-6.5) 08/25/17 04:20 Calcium 9.1 mg/dL (8.4-10.2) 08/24/17 11:45 Total Bilirubin 0.5 mg/dl (0.2-1.3) 08/24/17 11:45 AST 30 U/L (17-59) 08/24/17 11:45 ALT 34 U/L (21-72) 08/24/17 11:45 Alkaline Phosphatase 69 U/L (38-126) 08/24/17 11:45 Troponin I < 0.0120 ng/mL (0.00-0.120) 08/25/17 04:20 Total Protein 7.7 G/DL (6.3-8.2) 08/24/17 11:45 Albumin 4.4 g/dL (3.5-5.0) 08/24/17 11:45 Globulin 3.3 gm/dL (2.2-3.9) 08/24/17 11:45 Albumin/Globulin Ratio 1.3 (1.0-2.1) 08/24/17 11:45 - Hospital Course Hospital Course: This is a 71 yo male with a pmh of hypertension on Labetalol, Hydralazine, and Cozaar, hypercholesterolemia for which he takes Crestor, episodes of epistaxis for which he had an ablation performed at [facility]] about a week and a half ago. He also has histeroy of hypothyroidism after having a thyroidectomy for thyroid cancer. The patient presented to the ED on 08/24 with the complaint of some shortness of breath and chest tightness over the last week. He states that the shortness of breath is associated with exertion; he does not have any at rest. In the ED, the patient was seen to be hemodynamically stable. EKG shows no abnormalities. Troponin was negative in ED He was found to have a Hg of 10.0 which is at his baseline. The rest of his labwork is unremarkable. CXR shows mild prominence of interstitial markings in the perihilar regions; however there is no pleural effusions or pneumothorax. The patient was placed on telemetry/observation to rule out acute coronary syndrome. During his stay, he had no further episodes of chest pain. He was hemodynamically stable. Acute coronary syndrome was ruled out with serial negative troponins x 3 q [address] discussion with Dr[address] Ortiz, his hot tamale worker, the patient was discharged to home with instructions to follow up with Dr. Ortiz within the week. He is to also follow up with his engineering manager electronics in a week for further workup regarding his recurrent epistaxis. ASSESSMENT/PLAN 71 yo male with hx of htn, hypercholesterolemia, presenting to the ED with sob and chest tightness, ruled out for ACS, stable. 1) Chest pain, sob on admission, now resolved - EKG shows no acute changes - ACS ruled out with serial troponins negative x 3 - Dr. Ortiz said ok to discharge but patient must follow up at his office within the week. This was explained to the patient. - Continue Lasix - Heart healthy diet 2) Hypertension- under control. Continue the following as outpatient - Continue Labetalol - Continue Hydralazine - Continue Lasix - Continue Cozaar 3) Hypercholesterolemia - Continue Crestor 4) Anemia of chronic disease - Stable, at baseline 5) Recurrent epistaxis s/p ablation - No epistaxis as this time - F/u with his ENT as outpatient Discharge Exam - Additional Findings Additional findings: Physical exam: Constitutional- cooperative, awake, alert. Head- NCAT, PERRL Eye- PERRL, normal accommodation ENT- normal exam, MMM. Neck- normal inspection, supple, no JVD Respiratory- CTAB, no wheezes rales rhonchi Cardiovascular- RRR, +S1, +S2 no MRG GI/Abdominal- normal bowel sounds, soft, no mass, no hsm Skin- warm, dry Extremities Exam- Right knee immobilizer. normal capillary refill, normal inspection Neurological Exam- alert, stable gait Psych- normal mood, normal affect Discharge Plan - Follow Up Plan Condition: FAIR Disposition: HOME/ ROUTINE Instructions: Chest Pain (DC) Additional Instructions: Follow up with Dr. Ortiz in within the week. Follow up with Associate Sales Representative in 1 week. Return to ED for worsening chest pain and shortness of breath. Take all home medications as prescribed.
[2017-08-26] MEDS ORDERED: Lactobacillus Acidophilus 500 MU Cap PO SCH (09:00)
--- NOTE | 2017-08-26 10:51 | CARD ---
APPROVED REPORT EKG Measurement Heart [id number] MT [id number] <Conclusion> Normal sinus rhythm Left anterior fascicular block Cannot rule out Anterior infarct, age undetermined Abnormal ECG
== END 2017-08-25 14:30 | disposition home or self-care (01) ==
LOC: H.ER 11:31 → H.ERHOLD 14:10 → H.TEL 21:49
PROVIDERS: ADMIT Internal Medicine; ATTEND Internal Medicine
DX: R07.89 Other chest pain (principal); D63.8 Anemia in other chronic diseases classified elsewhere; E78.00 Pure hypercholesterolemia, unspecified; E89.0 Postprocedural hypothyroidism; I10 Essential (primary) hypertension; Z85.46 Personal history of malignant neoplasm of prostate; Z85.850 Personal history of malignant neoplasm of thyroid; Z87.01 Personal history of pneumonia (recurrent); H26.9 Unspecified cataract; M54.9 Dorsalgia, unspecified
CPT/HCPCS: 36415; 71020; 80053; 83036; 84484; 85025; 93005; 99284; G0378

== ENCOUNTER 2018-01-29 15:45 | Emergency (ER) | payer MEDICARE ==
[2018-01-29 15:46] VITALS: BMI 32.9
[2018-01-29 15:50] VITALS: TEMP 98.9
[2018-01-29] MEDS ORDERED: Phenylephrine 0.5% Nasal Spray NAS ONE (16:20)
--- NOTE | 2018-01-29 17:00 | ED PDOC ---
HPI: Nose Bleed Time Seen by Provider: 01/29/18 16:12 Chief Complaint (Nursing): ENT Problem Chief Complaint (Provider): Nose bleed History Per: Patient History/Exam Limitations: no limitations Onset/Duration Of Symptoms: Hrs Current Symptoms Are (Timing): Still Present Location Of Bleeding: Both Nares Symptoms Have Been: Continuous Associated Symptoms: Lightheadedness (mild) Recent Aspirin Use: Yes (Last Taken) (on daily aspirin regimen) Additional Complaint(s): 72yo male, presents to ER for evaluation of sudden onset epistaxis initially in his right nare and then also in his left nare, for the past 2 hours. Patient states he packed his nares with paper towel and presented to the ER for further evaluation. Patient reports he has extensive history of epiataxis which has required cautery and surgery under anesthesia; patient reports last procedure under anesthesia was on 11/28/17 at [facility] with Dr. Oscar Callahan and states this episode of epistaxis is first since then. He reports mild light headedness and denies any chest pain, shortness of breath, headache, trauma to head or nose. He also denies any other bleeding. Of note, sarahi is on a daily aspirin regimen and denies any other anticoagulant use. PMD: Dr. Ellsworth Past Medical History Reviewed: Historical Data, Nursing Documentation, Vital Signs Vital Signs: Last Vital Signs Temp 98.9 F 01/29/18 15:48 Pulse 88 01/29/18 15:48 Resp 16 01/29/18 15:48 BP 115/87 01/29/18 15:48 Pulse Ox 98 01/29/18 15:48 - Medical History PMH: Anemia, Colonic Polyps, HTN, Hypercholesterolemia, Hypothyroidism ( thyroidectomy thyroid cancer), Peripheral Edema (sometimes leftankle due to injury), Pneumonia (1989) Denies: HIV, Chronic Kidney Disease - Surgical History Surgical History: Appendectomy, Tonsillectomy Other surgeries: cautery and surgery due to frequent epistaxis - Family History Family History: States: Unknown Family Hx - Immunization History Hx Tetanus Toxoid Vaccination: No Hx Influenza Vaccination: No Hx Pneumococcal Vaccination: No - Home Medications Home Medications: Ambulatory Orders Medication Instructions Recorded Calcitriol [Rocaltrol] 0.5 mcg PO DAILY 03/22/16 Furosemide [Lasix] 20 mg PO DAILY 03/22/16 Labetalol [Trandate] 800 mg PO TID 03/22/16 Levothyroxine [Synthroid] 175 mcg PO DAILY 03/22/16 Losartan [Cozaar] 100 mg PO DAILY 03/22/16 hydrALAZINE [Apresoline] 25 mg PO TID 03/22/16 Aspirin [Ecotrin] 81 mg PO DAILY 07/18/17 Atorvastatin [Lipitor] 20 mg PO DAILY 07/18/17 Ascorbic Acid [Vitamin C] 600 mg PO DAILY 08/21/17 Calcium Carbonate [Calcium] 500 mg PO DAILY 08/21/17 Folic Acid 0.8 mg PO DAILY 08/21/17 L. Acidophilus/Bifid. Animalis 2 each PO DAILY 08/21/17 [Probiotic 5 Billion Cell Cap] Rrzrn-5-Lnyr Ethyl Esters [OMEGA 3] 1,000 mg PO DAILY 08/21/17 Super B Complex 1 tab PO DAILY 08/21/17 Ubidecarenone/Vit E Acet [Co Q-10 1 each PO DAILY 08/21/17 100 mg Softgel] - Allergies Allergies/Adverse Reactions: Allergies Allergy/AdvReac Type Severity Reaction Status Date / Time Penicillins Allergy RASH Verified 01/29/18 15:48 Review of Systems ROS Statement: Except As Marked, All Systems Reviewed And Found Negative (as per HPI) ENT: Positive for: Nose Discharge (nose bleed bilateral nares). Negative for: Other (trauma to nose) Cardiovascular: Positive for: Light Headedness (mild). Negative for: Chest Pain Respiratory: Negative for: Shortness of Breath Neurological: Negative for: Headache, Other (trauma to head) Physical Exam - Reviewed Nursing Documentation Reviewed: Yes Vital Signs Reviewed: Yes - Physical Exam Appears: Positive for: Non-toxic, No Acute Distress Head Exam: Positive for: ATRAUMATIC, NORMAL INSPECTION, NORMOCEPHALIC Skin: Positive for: Warm, Dry, Pallor Eye Exam: Positive for: Normal appearance, EOMI, PERRL ENT: Positive for: Pharynx Is (retropharynx with old appearing blood, otherwise clear), Other (Bilateral nares packed with paper towels. When removed, dry blood present in both nares and right > left. No active bleeding visualised using nasal speculum. Dried blood noted on lips. ) Cardiovascular/Chest: Positive for: Regular Rate, Rhythm Respiratory: Positive for: Normal Breath Sounds Neurologic/Psych: Positive for: Alert, Oriented (x 3) - Laboratory Results Result Diagrams: 01/29/18 16:40 01/29/18 16:40 - ECG O2 Sat by Pulse Oximetry: 98 (RA) Pulse Ox Interpretation: Normal Medical Decision Making Medical Decision Making: Impression: Epistaxis s/p surgery 2 months ago Plan: -- Observation for rebleed, consider packing -- Call placed to Dr. Callahan Time: [address] Gillis, who is either a fellow/resident for Dr. Callahan and is agreeable with plan for observation in ER and packing if bleed starts again. Patient can follow up with Dr. Callahan in his office on 02/03/18. 1814 Labs demonstrate stable hgb. No emergently significant abnormalities. On reeval pt with no episodes of rebleeding. He reports feeling "shaky" inside. Thinks may be due to need to take BP meds. Denies chest pain or shortness of breath. Reports hasn't eaten since 11am as well. BP stable and HR 67. EKG/ accucheck ordered. 1829 EKG with no acute changes [place] better after eating. stable for dc with follow up. Scribe Attestation: Documented by Mary Lloyd, acting as a scribe for Malika Sarah MD Provider Scribe Attestation: All medical record entries made by the Scribe were at my direction and personally dictated by me. I have reviewed the chart and agree that the record accurately reflects my personal performance of the history, physical exam, medical decision making, and the department course for this patient. I have also personally directed, reviewed, and agree with the discharge instructions and disposition. Disposition - Clinical Impression Clinical Impression: Epistaxis - Disposition Referrals: Oscar Callahan MD [Medical Doctor] - 02/03/18 Disposition: Routine/Home Disposition Time: 18:30 Condition: IMPROVED Additional Instructions: PLEASE KEEP YOUR NASAL MEMBRANES MOIST POSSIBLE TO PREVENT REBLEED. AVOID DRY AIR CONDITIONED AREAS. USE A HUMIDIFIER IN YOUR HOME Instructions: Nosebleeds (DC) Forms: [employer] (Russian)
[2018-01-29 17:01] LABS: BASO # 0.1 K/uL (0.0-0.2); BASO % 1.1 % (0.0-2.0); EOS # 0.2 K/uL (0.0-0.7); EOS % 2.6 % (0.0-4.0); HEMOGLOBIN 11.1 g/dL (12.0-18.0); LYMPH # 0.8 K/uL (1.0-4.3); LYMPH % 9.8 % (20.0-40.0); MEAN CELL VOLUME 87.9 fl (80.0-94.0); MEAN CORPUSCULAR HEMOGLOBIN 29.6 pg (27.0-31.0); MEAN CORPUSCULAR HGB CONC 33.6 g/dL (33.0-37.0); MEAN PLATELET VOLUME 8.5 fl (7.2-11.7); MONO # 0.6 K/uL (0.0-0.8); MONO % 8.1 % (0.0-10.0); NEUT # 6.3 K/uL (1.8-7.0); NEUT % 78.4 % (50.0-75.0); PLATELET COUNT 208 K/uL (130-400); RBC 3.75 Mil/uL (4.40-5.90); RED CELL DISTRIBUTION WIDTH 14.8 % (11.5-14.5)
[2018-01-29 17:12] LABS: ALB/GLOB RATIO 1.3 (1.0-2.1); ALBUMIN 4.4 g/dL (3.5-5.0); ALT/SGPT 48 U/L (21-72); AST/SGOT 39 U/L (17-59); BLOOD UREA NITROGEN 24 mg/dl (9-20); CALCIUM 9.4 mg/dL (8.4-10.2); GFR AFRICAN-AMERICAN > 60; GFR NON-AFRICAN AMERICAN 60
[2018-01-29 17:19] LABS: INR 1.2 (0.9-1.2); PROTHROMBIN TIME 13.7 Seconds (9.8-13.1)
[2018-01-29 17:59] LABS: EOSINOPHIL 2 % (0-7); LYMPHOCYTE 8 % (20-50); MONOCYTE 9 % (0-10); NEUTROPHIL 81 % (42-75); TOTAL CELLS COUNTED 100
[2018-01-29 18:00] LABS: HYPOCHROMIC SLIGHT; PLATELET ESTIMATE NORMAL (NORMAL)
[2018-01-29 18:31] VITALS: BP 147/76; PULSE 69; RESP 17
[2018-01-29 18:51] VITALS: O2SAT 98
--- NOTE | 2018-01-30 17:49 | CARD ---
APPROVED REPORT EKG Measurement Heart [id number] <Conclusion> Normal sinus rhythm Left anterior fascicular block Left ventricular hypertrophy with QRS widening Abnormal ECG
== END 2018-01-29 18:25 | disposition home or self-care (01) ==
LOC: H.ER 15:45
DX: R04.0 Epistaxis (principal); E03.9 Hypothyroidism, unspecified; E78.00 Pure hypercholesterolemia, unspecified; I10 Essential (primary) hypertension; Z79.82 Long term (current) use of aspirin; Z85.850 Personal history of malignant neoplasm of thyroid; Z88.0 Allergy status to penicillin

== ENCOUNTER 2018-06-29 17:28 | Emergency (ER) | payer MEDICARE ==
[2018-06-29 17:28] VITALS: BMI 32.9
[2018-06-29 17:36] VITALS: RESP 18
[2018-06-29] MEDS ORDERED: Phenylephrine 0.5% Nasal Spray NAS PRN (18:51)
[2018-06-29 18:59] LABS: BASO % 0.3 % (0.0-2.0); LYMPH # 0.3 K/uL (1.0-4.3); LYMPH % 2.5 % (20.0-40.0); MEAN CORPUSCULAR HEMOGLOBIN 30.1 pg (27.0-31.0); MEAN CORPUSCULAR HGB CONC 33.4 g/dL (33.0-37.0); MEAN PLATELET VOLUME 8.4 fl (7.2-11.7); MONO # 0.1 K/uL (0.0-0.8); MONO % 1.1 % (0.0-10.0); NEUT % 96.1 % (50.0-75.0); NRBC % 0.1 % (0.0-0.0); PLATELET COUNT 243 K/uL (130-400); RBC 3.67 Mil/uL (4.40-5.90); WHITE BLOOD COUNT 12.5 K/uL (4.8-10.8)
[2018-06-29 19:09] LABS: INR 1.2
[2018-06-29 19:12] LABS: PARTIAL THROMBOPLASTIN TIME 30.6 Seconds (25.6-37.1)
[2018-06-29 19:18] LABS: BLOOD UREA NITROGEN 24 mg/dl (9-20); CALCIUM 9.6 mg/dL (8.4-10.2); GFR NON-AFRICAN AMERICAN 60
--- NOTE | 2018-06-29 19:25 | ED PDOC ---
HPI: Nose Bleed Time Seen by Provider: 06/29/18 18:16 Chief Complaint (Nursing): ENT Problem Chief Complaint (Provider): Nose Bleed History Per: Patient History/Exam Limitations: no limitations Onset/Duration Of Symptoms: Hrs Current Symptoms Are (Timing): Better Additional Complaint(s): 72 year old male with a history of htn, chf, and recurrent nose bleeding presents to the ED for nose bleed that started a couple of hours ago. Patient reports blood was oozing from both nostrils after he had a procedure earlier this morning. Patient states his ENT performed a cauterization and put splints in his nose at [facility]. This procedure was same day surgery and he was discharged home. He denies active bleeding, spitting up any blood or any other complaints. He has had the procedure done at least twice. ENT: Dr. Callahan Past Medical History Reviewed: Historical Data, Nursing Documentation, Vital Signs Vital Signs: Last Vital Signs Temp 98.8 F 06/29/18 17:33 Pulse 78 06/29/18 17:33 Resp 18 06/29/18 17:33 BP 162/80 H 06/29/18 17:33 Pulse Ox 99 06/29/18 17:33 - Medical History PMH: Anemia, Colonic Polyps, HTN, Hypercholesterolemia, Hypothyroidism (thyroidectomy thyroid cancer), Peripheral Edema (sometimes leftankle due to injury), Pneumonia (1989) Denies: HIV, Chronic Kidney Disease - Surgical History Surgical History: Appendectomy, Tonsillectomy Other surgeries: cauterization procedures - Family History Family History: States: Unknown Family Hx - Immunization History Hx Tetanus Toxoid Vaccination: No Hx Influenza Vaccination: No Hx Pneumococcal Vaccination: No - Home Medications Home Medications: Ambulatory Orders Medication Instructions Recorded RX: Calcitriol [Rocaltrol] 0.5 mcg PO DAILY 03/22/16 RX: Furosemide [Lasix] 20 mg PO DAILY 03/22/16 RX: Labetalol [Trandate] 800 mg PO TID 03/22/16 RX: Levothyroxine [Synthroid] 175 mcg PO DAILY 03/22/16 RX: Losartan [Cozaar] 100 mg PO DAILY 03/22/16 RX: hydrALAZINE [Apresoline] 25 mg PO TID 03/22/16 RX: Aspirin [Ecotrin] 81 mg PO DAILY 07/18/17 RX: Atorvastatin [Lipitor] 20 mg PO DAILY 07/18/17 RX: Ascorbic Acid [Vitamin C] 600 mg PO DAILY 08/21/17 RX: Calcium Carbonate [Calcium] 500 mg PO DAILY 08/21/17 RX: Folic Acid 0.8 mg PO DAILY 08/21/17 RX: L. Acidophilus/Bifid. Animalis 2 each PO DAILY 08/21/17 [Probiotic 5 Billion Cell Cap] RX: Hetxx-0-Itdg Ethyl Esters 1,000 mg PO DAILY 08/21/17 [OMEGA 3] RX: Ubidecarenone/Vit E Acet [Co 1 each PO DAILY 08/21/17 Q-10 100 mg Softgel] Super B Complex 1 tab PO DAILY 08/21/17 RX: Clindamycin [Cleocin] 300 mg PO TID #21 cap 06/13/18 - Allergies Allergies/Adverse Reactions: Allergies Allergy/AdvReac Type Severity Reaction Status Date / Time Penicillins Allergy RASH Verified 06/13/18 18:40 Review of Systems ROS Statement: Except As Marked, All Systems Reviewed And Found Negative ENT: Positive for: Other (nose bleed) Physical Exam - Reviewed Nursing Documentation Reviewed: Yes Vital Signs Reviewed: Yes - Physical Exam Appears: Positive for: No Acute Distress ENT: Positive for: Pharynx Is (clear of blood), Other (right nostril: dry blood and blood clot. left nostril: dry blood. no active bleeding) Cardiovascular/Chest: Positive for: Regular Rate, Rhythm. Negative for: Murmur Respiratory: Positive for: Normal Breath Sounds. Negative for: Respiratory Distress Extremity: Positive for: Normal ROM Neurologic/Psych: Positive for: Alert, Oriented (x3) - Laboratory Results Result Diagrams: 06/29/18 18:35 06/29/18 18:35 - ECG O2 Sat by Pulse Oximetry: 99 (RA) Pulse Ox Interpretation: Normal Medical Decision Making Medical Decision Making: Time: 1824 Initial Impression: nose bleed, most likely procedural complication Initial Plan: --Type and screen --BMP --CBC with differentials --PTT --PT Time: 1849 --Case discussed with Dr. Stokes, who advised against invasive procedure unless there is serious bleeding. He recommends Afrin spray. If patient is stable with no active bleeding and normal vitals, patient can be discharged home. Scribe Attestation: Documented by Mena Corrigan, acting as a scribe for Juan C Saldivar MD Provider Scribe Attestation: All medical record entries made by the Scribe were at my direction and personally dictated by me. I have reviewed the chart and agree that the record accurately reflects my personal performance of the history, physical exam, medical decision making, and the department course for this patient. I have also personally directed, reviewed, and agree with the discharge instructions and disposition. Disposition - Clinical Impression Clinical Impression: Epistaxis - Patient ED Disposition Is Patient to be Admitted: Transfer of Care Counseled Patient/Family Regarding: Studies Performed, Diagnosis - Disposition Disposition: Transfer of Care Disposition Time: 19:00 Condition: IMPROVED Additional Instructions: follow up with your ENT DR Callahan in 1-2 days return to the ED with any worsening or concerning symptoms Instructions: Nosebleeds (DC) Patient Signed Over To: Anson Ferrera
--- NOTE | 2018-06-29 19:53 | ED PDOC ---
- Laboratory Results Result Diagrams: 06/29/18 18:35 06/29/18 18:35 - ECG O2 Sat by Pulse Oximetry: 99 (RA) Pulse Ox Interpretation: Normal Medical Decision Making Medical Decision Making: Time: 1899 --Patient signed out to this provider by Dr. Saldivar, pending labs, if all normal, patient can be discharged. Time: 2024 --Hemoglobin is stable. pt aware. instructed to follow up with his private ENT tomorrow. Scribe Attestation: Documented by Mena Corrigan, acting as a scribe for Anson Ferrera MD Provider Scribe Attestation: All medical record entries made by the Scribe were at my direction and personally dictated by me. I have reviewed the chart and agree that the record accurately reflects my personal performance of the history, physical exam, medical decision making, and the department course for this patient. I have also personally directed, reviewed, and agree with the discharge instructions and disposition. Disposition Counseled Patient/Family Regarding: Studies Performed, Diagnosis, Need For Followup - Clinical Impression Clinical Impression: Epistaxis - POA Present On Arrival: None - Disposition Disposition: Routine/Home Disposition Time: 22:00 Condition: IMPROVED Additional Instructions: follow up with your ENT DR Callahan in 1-2 days return to the ED with any worsening or concerning symptoms Instructions: Nosebleeds (DC) Forms: [employer] (Croatian)
[2018-06-29 21:01] LABS: ANISOCYTOSIS SLIGHT; BANDS 2 % (0-2); HYPOCHROMIC SLIGHT; LYMPHOCYTE 5 % (20-50); MONOCYTE 3 % (0-10); NEUTROPHIL 90 % (42-75); PLATELET ESTIMATE NORMAL (NORMAL); TOTAL CELLS COUNTED 100
[2018-06-29 22:15] VITALS: BP 152/70; PULSE 79; TEMP 98.5
[2018-06-30 04:57] VITALS: O2SAT 99
== END 2018-06-29 21:41 | disposition home or self-care (01) ==
LOC: H.ER 17:28
DX: R04.0 Epistaxis (principal); E03.9 Hypothyroidism, unspecified; E78.00 Pure hypercholesterolemia, unspecified; I11.0 Hypertensive heart disease with heart failure; I50.9 Heart failure, unspecified; Z85.850 Personal history of malignant neoplasm of thyroid; Z88.0 Allergy status to penicillin; Z79.82 Long term (current) use of aspirin

== ENCOUNTER 2018-07-19 03:55 | Emergency (ER) | payer MEDICARE ==
[2018-07-19 03:55] VITALS: BMI 32.9
[2018-07-19 04:41] LABS: HEMOGLOBIN 8.8 g/dL (12.0-18.0); MEAN CELL VOLUME 90.2 fl (80.0-94.0); MEAN CORPUSCULAR HEMOGLOBIN 30.4 pg (27.0-31.0); MEAN CORPUSCULAR HGB CONC 33.7 g/dL (33.0-37.0); RBC 2.91 Mil/uL (4.40-5.90); RED CELL DISTRIBUTION WIDTH 14.3 % (11.5-14.5)
--- NOTE | 2018-07-19 04:41 | ED PDOC ---
HPI: CCC, URI, Sore Throat Time Seen by Provider: 07/19/18 04:04 Chief Complaint (Nursing): ENT Problem Chief Complaint (Provider): Epistaxis History Per: Patient History/Exam Limitations: no limitations Onset/Duration Of Symptoms: Mins (40) Additional Complaint(s): Luis Bowman, a 72 year old male with past medical history of hypertension, partial aortic repair and frequent nose bleeds, presents to the ED with a nose bleed onset 40 minutes prior to arrival. Patient states that he had ligation of 2 arteries in his nose two weeks ago and was fine until today. He reports having a nose bleed at his house and states his sheets were saturated in blood, blood went into his mouth which he tried not to swallow but did end up swallowing a little. He subsequently threw it up. Patient denies light headedness, dizziness, chest pain or shortness of breath. He reports having an appointment with his ENT, Dr. Govea, tomorrow. No further medical complaints. Past Medical History Reviewed: Historical Data, Nursing Documentation, Vital Signs Vital Signs: Last Vital Signs Temp 97.5 F L 07/19/18 04:03 Pulse 69 07/19/18 04:03 Resp 16 07/19/18 04:03 BP 149/76 07/19/18 04:03 Pulse Ox 100 07/19/18 04:03 - Medical History PMH: Anemia, Colonic Polyps, HTN, Hypercholesterolemia, Hypothyroidism (thyroidectomy thyroid cancer), Peripheral Edema (sometimes leftankle due to injury), Pneumonia (1989) Denies: HIV, Chronic Kidney Disease Other PMH: frequent nose bleeds - Surgical History Surgical History: Appendectomy, Tonsillectomy Other surgeries: partial aortic repair - Family History Family History: States: Unknown Family Hx - Immunization History Hx Tetanus Toxoid Vaccination: No Hx Influenza Vaccination: No Hx Pneumococcal Vaccination: No - Home Medications Home Medications: Ambulatory Orders Medication Instructions Recorded Calcitriol [Rocaltrol] 0.5 mcg PO DAILY 03/22/16 Furosemide [Lasix] 20 mg PO DAILY 03/22/16 Labetalol [Trandate] 800 mg PO TID 03/22/16 Levothyroxine [Synthroid] 175 mcg PO DAILY 03/22/16 Losartan [Cozaar] 100 mg PO DAILY 03/22/16 hydrALAZINE [Apresoline] 25 mg PO TID 03/22/16 Aspirin [Ecotrin] 81 mg PO DAILY 07/18/17 Atorvastatin [Lipitor] 20 mg PO DAILY 07/18/17 Ascorbic Acid [Vitamin C] 600 mg PO DAILY 08/21/17 Calcium Carbonate [Calcium] 500 mg PO DAILY 08/21/17 Folic Acid 0.8 mg PO DAILY 08/21/17 L. Acidophilus/Bifid. Animalis 2 each PO DAILY 08/21/17 [Probiotic 5 Billion Cell Cap] Qpzky-5-Rczr Ethyl Esters [OMEGA 3] 1,000 mg PO DAILY 08/21/17 Super B Complex 1 tab PO DAILY 08/21/17 Ubidecarenone/Vit E Acet [Co Q-10 1 each PO DAILY 08/21/17 100 mg Softgel] Clindamycin [Cleocin] 300 mg PO TID #21 cap 06/13/18 - Allergies Allergies/Adverse Reactions: Allergies Allergy/AdvReac Type Severity Reaction Status Date / Time Penicillins Allergy RASH Verified 06/13/18 18:40 Review of Systems ROS Statement: Except As Marked, All Systems Reviewed And Found Negative ENT: Positive for: Nose Discharge (blood) Cardiovascular: Negative for: Chest Pain Respiratory: Negative for: Shortness of Breath Neurological: Negative for: Dizziness, Other (light headedness) Physical Exam - Reviewed Nursing Documentation Reviewed: Yes Vital Signs Reviewed: Yes - Physical Exam Appears: Positive for: Well, Non-toxic, No Acute Distress Head Exam: Positive for: ATRAUMATIC, NORMAL INSPECTION, NORMOCEPHALIC Skin: Positive for: Warm. Negative for: Normal Color (pale) Eye Exam: Positive for: EOMI, Normal appearance, PERRL ENT: Positive for: Other (active oozing of blood from right and left, more so on left, blood around mouth) Neck: Positive for: Normal, Painless ROM Cardiovascular/Chest: Positive for: Regular Rate, Rhythm Respiratory: Positive for: CNT, Normal Breath Sounds Gastrointestinal/Abdominal: Positive for: Normal Exam, Soft Back: Positive for: Normal Inspection Extremity: Positive for: Normal ROM Neurologic/Psych: Positive for: Alert, Oriented - Laboratory Results Result Diagrams: 07/19/18 06:10 07/19/18 04:30 - ECG O2 Sat by Pulse Oximetry: 100 (RA) Pulse Ox Interpretation: Normal Medical Decision Making Medical Decision Making: Time: 04:04 A/P: patient presenting with epistaxis, hemodynamically stable, currently pat ient is improving with external pressure, will continue to monitor Initial Plan: --Type and screen --BMP --CBC --PTT --Prothrombin time --Zofran 4 mg IVP --practical nursing teacher 500 --After external device removed, bleeding improved 515 --Patient sneezed and bleeding restarted --Non-balloon inflated rhinorocket placed on L nare with good response 0600 --BP 101/78, patient pale, 2nd CBC ordered --Patient coughed out non-balloon rhinorocket --4.5cm anterior inflatable rhinorocket placed, inflated 10cm of air 0630 --Hgb 7.6 0645 --Page placed to Dr. Barrera's office at , awaiting page back from on-call Dr. Whitehead [phone] --Will endorse to Dr. Bravo pending re-eval and callback from ENT Scribe Attestation: Documented by Karina Khan, acting as a scribe for Geremias Montaño MD. Provider Scribe Attestation: All medical record entries made by the Scribe were at my direction and pers onally dictated by me. I have reviewed the chart and agree that the record accurately reflects my personal performance of the history, physical exam, medical decision making, and the department course for this patient. I have also personally directed, reviewed, and agree with the discharge instructions and disposition. Disposition - Disposition Forms: [employer] (Monegasque)
[2018-07-19 04:43] LABS: INR 1.1
[2018-07-19 04:46] LABS: PARTIAL THROMBOPLASTIN TIME 31.9 Seconds (25.6-37.1)
[2018-07-19 04:47] LABS: BLOOD UREA NITROGEN 29 mg/dl (9-20); CALCIUM 9.2 mg/dL (8.4-10.2); GFR NON-AFRICAN AMERICAN 55
[2018-07-19 06:30] LABS: HEMOGLOBIN 7.8 g/dL (12.0-18.0); MEAN CELL VOLUME 89.6 fl (80.0-94.0); MEAN CORPUSCULAR HEMOGLOBIN 30.1 pg (27.0-31.0); MEAN CORPUSCULAR HGB CONC 33.6 g/dL (33.0-37.0); RBC 2.58 Mil/uL (4.40-5.90); WHITE BLOOD COUNT 16.2 K/uL (4.8-10.8)
[2018-07-19 07:29] VITALS: O2SAT 98
[2018-07-19 08:12] LABS: HEMOGLOBIN 7.4 g/dL (12.0-18.0); MEAN CELL VOLUME 88.4 fl (80.0-94.0); MEAN CORPUSCULAR HEMOGLOBIN 30.1 pg (27.0-31.0); MEAN CORPUSCULAR HGB CONC 34.1 g/dL (33.0-37.0); RBC 2.44 Mil/uL (4.40-5.90); RED CELL DISTRIBUTION WIDTH 13.7 % (11.5-14.5); WHITE BLOOD COUNT 15.7 K/uL (4.8-10.8)
--- NOTE | 2018-07-19 09:46 | ED PDOC ---
- Laboratory Results Result Diagrams: 07/19/18 08:06 07/19/18 04:30 - ECG O2 Sat by Pulse Oximetry: 98 Medical Decision Making Medical Decision Making: received patient from Dr. Montaño. Patient presented with left sided nosebleed that is finally controlled after readjustment of RhinoRocket by Dr. Montaño as per discussion with ENT. Patient has appointment for followup tomorrow. His repeat H/H is slightly lower but his VS are stable and he is hemodynamically stable. Disposition Doctor Will See Patient In The: Office Counseled Patient/Family Regarding: Diagnosis, Need For Followup, Rx Given - Clinical Impression Clinical Impression: Nosebleed - POA Present On Arrival: None - Disposition Referrals: Laureano Ellsworth MD [Family Provider] - Disposition: Hospitalized as Observation Patient Disposition Time: 09:15 Condition: IMPROVED Additional Instructions: Followup with Dr. Wilfrid Barrera tomorrow as scheduled. Prescriptions: Clindamycin [Cleocin] 300 mg PO TID #15 cap Instructions: Nosebleeds Forms: [employer] (Faroese)
[2018-07-19 10:13] VITALS: BP 110/70; PULSE 68; RESP 18; TEMP 98.8
== END 2018-07-19 10:18 | disposition home or self-care (01) ==
LOC: H.ER 03:55
DX: R04.0 Epistaxis (principal)
CPT/HCPCS: 80048; 85027; 85610; 85730; 86850; 86900; 96374; 96375; 99284; J2270; J2405

== ENCOUNTER 2018-07-19 16:55 | Inpatient (IN) | payer MEDICARE ==
[2018-07-19 16:58] VITALS: BMI 32.9
--- NOTE | 2018-07-19 17:17 | ED PDOC ---
HPI: Abdomen Time Seen by Provider: 07/19/18 17:01 Chief Complaint (Nursing): GI Problem Chief Complaint (Provider): Rectal bleeding History Per: Patient History/Exam Limitations: no limitations Additional Complaint(s): Pt reports rectal bleeding that started [employer] TRA[employer], fell to ground while trying to walk due to generalized weakness, no head injury, no LOC. Pt evaluated earlier this AM for epistaxis, Rhinorocket placed, discharged home. Pt denies CP, SOB, nausea, vomiting, abdominal pain. Past Medical History Reviewed: Nursing Documentation, Vital Signs Vital Signs: Last Vital Signs Temp 98.1 F 07/19/18 17:00 Pulse 78 07/19/18 17:00 Resp 18 07/19/18 17:00 BP 65/37 L 07/19/18 17:00 Pulse Ox 97 07/19/18 17:00 - Medical History PMH: Anemia, Colonic Polyps, HTN, Hypercholesterolemia, Hypothyroidism (thyroidectomy thyroid cancer), Peripheral Edema (sometimes leftankle due to injury), Pneumonia (1989) Denies: HIV, Chronic Kidney Disease - Surgical History Surgical History: Appendectomy, Tonsillectomy - Family History Family History: States: Unknown Family Hx - Social History Current smoker - smoking cessation education provided: No Alcohol: None - Immunization History Hx Tetanus Toxoid Vaccination: No Hx Influenza Vaccination: No Hx Pneumococcal Vaccination: No - Home Medications Home Medications: Ambulatory Orders Medication Instructions Recorded Calcitriol [Rocaltrol] 0.5 mcg PO DAILY 03/22/16 Furosemide [Lasix] 20 mg PO DAILY 03/22/16 Labetalol [Trandate] 800 mg PO TID 03/22/16 Levothyroxine [Synthroid] 175 mcg PO DAILY 03/22/16 Losartan [Cozaar] 100 mg PO DAILY 03/22/16 hydrALAZINE [Apresoline] 25 mg PO TID 03/22/16 Aspirin [Ecotrin] 81 mg PO DAILY 07/18/17 Atorvastatin [Lipitor] 20 mg PO DAILY 07/18/17 Ascorbic Acid [Vitamin C] 600 mg PO DAILY 08/21/17 Calcium Carbonate [Calcium] 500 mg PO DAILY 08/21/17 Folic Acid 0.8 mg PO DAILY 08/21/17 L. Acidophilus/Bifid. Animalis 2 each PO DAILY 08/21/17 [Probiotic 5 Billion Cell Cap] Qzyej-0-Purc Ethyl Esters [OMEGA 3] 1,000 mg PO DAILY 08/21/17 Super B Complex 1 tab PO DAILY 08/21/17 Ubidecarenone/Vit E Acet [Co Q-10 1 each PO DAILY 08/21/17 100 mg Softgel] Ferrous Sulfate [Feosol] 324 mg PO DAILY #30 ect 07/19/18 - Allergies Allergies/Adverse Reactions: Allergies Allergy/AdvReac Type Severity Reaction Status Date / Time Penicillins Allergy RASH Verified 07/19/18 17:00 Review of Systems ROS Statement: Except As Marked, All Systems Reviewed And Found Negative Gastrointestinal: Positive for: Hematochezia Physical Exam - Reviewed Nursing Documentation Reviewed: Yes Vital Signs Reviewed: Yes - Physical Exam Appears: Positive for: No Acute Distress Head Exam: Positive for: ATRAUMATIC, NORMAL INSPECTION Skin: Positive for: Pallor Eye Exam: Positive for: EOMI, PERRL, Other (Pale conjunctivae) ENT: Positive for: Pharynx Is (Clear, no blood), Other (Rhino in L nares, no active bleeding) Cardiovascular/Chest: Positive for: Regular Rate, Rhythm Respiratory: Positive for: Normal Breath Sounds. Negative for: Rales, Rhonchi, Wheezing Gastrointestinal/Abdominal: Positive for: Normal Exam, Bowel Sounds, Soft. 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 Negative for: Motor/Sensory Deficits, Aphasia, Facial Droop - Laboratory Results Result Diagrams: 07/19/18 17:05 07/19/18 17:05 - ECG Interpretation Of ECG: NSR @ 70, LAFB. O2 Sat by Pulse Oximetry: 97 Pulse Ox Interpretation: Normal - Radiology X-Ray: Interpreted by Me X-Ray Interpretation: No Acute Disease - Critical Care Total Time (In Min): 120 Medical Decision Making Medical Decision Makin yo male with active GIB. - labs - EKG - CXR - IVF - O- blood - GI consult - Protonix 17:23 Pt passed ~2 cups large clot. 17:25 -Case discussed with Dr. Garcia who was notified of vitals and wants a call back when labs are back. 17:37 2U O- blood initiated. 17:41 -Paged Dr. Garcia. Results discussed, agrees with plan of transfusion, CTA abd/pelvis, admit to ICU. 19:20 Obtained verbal consent for central line catheter, witnessed by Lydia Gibbons. R femoral line obtained with Dr. Ames (Surgery resident). 19:25 CTA abd/pelvis pending. Procedures - Central Line Central Line Lumen: triple Central Line Procedure: betadine prep, sterile drapes applied, sterile dressing applied Central Line Postion: femoral (R) Anesthesia: local cc's of anesthesia: 6 Complications: none Central Line Post Position: sutured, good blood return Disposition - Clinical Impression Clinical Impression: Lower GI bleed - Patient ED Disposition Is Patient to be Admitted: Yes - Disposition Disposition Time: 19:00 Condition: GUARDED Forms: Covocative ([place]) - Pt Status Changed To: Hospital Disposition Of: Inpatient - Admit Certification Admit to Inpatient:: After my assessment, the patient will require hospitalization for at least two midnights. This is because of the severity of symptoms shown, intensity of services needed, and/or the medical risk in this patient being treated as an outpatient. - POA Present On Arrival: None
[2018-07-19 17:37] LABS: INR 1.3; PROTHROMBIN TIME 14.3 Seconds (9.8-13.1)
[2018-07-19 17:38] LABS: BASO # 0.1 K/uL (0.0-0.2); BASO % 0.5 % (0.0-2.0); LYMPH # 0.7 K/uL (1.0-4.3); LYMPH % 5.2 % (20.0-40.0); MEAN CELL VOLUME 89.5 fl (80.0-94.0); MEAN CORPUSCULAR HEMOGLOBIN 30.4 pg (27.0-31.0); MEAN PLATELET VOLUME 8.3 fl (7.2-11.7); MONO # 0.6 K/uL (0.0-0.8); MONO % 4.3 % (0.0-10.0); NEUT # 12.3 K/uL (1.8-7.0); PLATELET COUNT 258 K/uL (130-400); RBC 2.02 Mil/uL (4.40-5.90); WHITE BLOOD COUNT 13.6 K/uL (4.8-10.8)
[2018-07-19 17:40] LABS: PARTIAL THROMBOPLASTIN TIME 26.1 Seconds (25.6-37.1)
[2018-07-19 17:45] LABS: HEMOGLOBIN 6.1 g/dL (12.0-18.0)
[2018-07-19 17:55] LABS: ALB/GLOB RATIO 1.1 (1.0-2.1); ALBUMIN 3.3 g/dL (3.5-5.0); CALCIUM 8.9 mg/dL (8.4-10.2)
[2018-07-19 17:56] LABS: TROPONIN I 0.039 ng/mL (0.00-0.120)
[2018-07-19] MEDS ORDERED: Sodium Chloride 0.9% 1,000 ML IV STA ×3 (17:58)
[2018-07-19] MEDS ORDERED: Pantoprazole 40 MG in Sodium Chloride 0.9% 100 ML IVPB STA (18:07)
--- NOTE | 2018-07-19 18:34 | CP.PCM.HP ---
History of Present Illness - History of Present Illness History of Present Illness: cc: bleeding HPI: 72 year old male PMH ascending aortic aneurysm repair, recurrent epistaxis, HTN, HLD, hypothyroidism, seen in the ED earlier this morning for epistaxis s/p ligation of two arteries two weeks ago with rebleed (rhinorockets placed today), presents this evening for generalized weakness and near fall due to acute massi ve bright red blood per rectum. Patient BP triage was 75 systolic, H/H dropped from 7.4/21.6 to 6.1/18.1 - to note this was prior to second episode of large BRBPR and fluids. BUN elevated 55 from 29 this morning, INR 1.3. In ED 2 units O neg blood initiated, patient received 2L NS, and BP 81/46. Third liter given and patient BP now 115/56. Protonix drip started, central line placed, CTA AP ordered, GI Dr. Garcia consulted, recommends cont HD support. Admit to ICU for close monitoring, HD support. Will initiate pressors if required, 4 units have been crossmatched in ED. Repeat CBC q4 hours. Patient continues to have large oozing of bright and darker blood per rectum. Discussed with Dr. Garcia after third BRBPR, recommendations to continue HD support at this time. Will rediscuss when CTA and repeat CBC complete. Present on Admission - Present on Admission Any Indicators Present on Admission: No Past Patient History - Infectious Disease Hx of Infectious Diseases: None - Past Medical History & Family History Past Medical History?: Yes - Past Social History Smoking Status: Never Smoked - CARDIAC Hx Hypercholesterolemia: Yes Hx Hypertension: Yes Hx Peripheral Edema: Yes (sometimes leftankle due to injury) - PULMONARY Hx Pneumonia: Yes (1989) - NEUROLOGICAL Hx Neurological Disorder: No - HEENT Hx HEENT Problems: Yes - RENAL Hx Chronic Kidney Disease: No - ENDOCRINE/METABOLIC Hx Hypothyroidism: Yes (thyroidectomy thyroid cancer) - HEMATOLOGICAL/ONCOLOGICAL Hx Anemia: Yes Hx Human Immunodeficiency Virus (HIV): No - INTEGUMENTARY Hx Dermatological Problems: No - MUSCULOSKELETAL/RHEUMATOLOGICAL Hx Falls: No - GASTROINTESTINAL Hx Gastrointestinal Disorders: No - GENITOURINARY/GYNECOLOGICAL Hx Genitourinary Disorders: Yes Hx Prostate Cancer: Yes - PSYCHIATRIC Hx Psychophysiologic Disorder: No Hx Substance Use: No - SURGICAL HISTORY Hx Appendectomy: Yes Hx Tonsillectomy: Yes - ANESTHESIA Hx Anesthesia: Yes Hx Anesthesia Reactions: No Hx Malignant Hyperthermia: No Meds Allergies/Adverse Reactions: Allergies Allergy/AdvReac Type Severity Reaction Status Date / Time Penicillins Allergy RASH Verified 07/19/18 17:00 Physical Exam - Constitutional Additional comments: mild distress, cooperative, following commands, pale - Head Exam Head Exam: ATRAUMATIC Additional comments: rhinorockets in place. - Eye Exam Eye Exam: EOMI, Normal appearance, PERRL - ENT Exam ENT Exam: Mucous Membranes Dry Additional comments: rhinorockets in place saturated - Neck Exam Neck exam: Positive for: Full Rom, Normal Inspection - Respiratory Exam Respiratory Exam: Clear to Auscultation Bilateral, NORMAL BREATHING PATTERN - Cardiovascular Exam Cardiovascular Exam: RRR, +S1, +S2 - GI/Abdominal Exam GI & Abdominal Exam: Normal Bowel Sounds, Soft. absent: Mass, Organomegaly - Extremities Exam Extremities exam: Positive for: normal capillary refill, pedal pulses present Additional comments: PALE - Back Exam Back exam: absent: CVA tenderness (L), CVA tenderness (R) - Neurological Exam Neurological exam: Alert, Oriented x3 - Psychiatric Exam Psychiatric exam: Normal Affect, Normal Mood - Skin Skin Exam: Dry, Pallor, Warm Results - Vital Signs Recent Vital Signs: Last Vital Signs Temp 98 F 07/19/18 18:24 Pulse 79 07/19/18 18:24 Resp 18 07/19/18 18:24 BP 115/56 L 07/19/18 18:24 Pulse Ox 100 07/19/18 18:24 - Labs Result Diagrams: 07/19/18 17:05 07/19/18 17:05 Labs: Laboratory Results - last 24 hr 07/19/18 07/19/18 07/19/18 17:05 17:05 17:05 WBC 13.6 H RBC 2.02 L Hgb 6.1 L* Hct 18.1 L MCV 89.5 MCH 30.4 MCHC 34.0 RDW 14.0 Plt Count 258 MPV 8.3 Neut % (Auto) 90.0 H Lymph % (Auto) 5.2 L [place] % (Auto) 4.3 Eos % (Auto) 0.0 Baso % (Auto) 0.5 Neut # (Auto) 12.3 H Lymph # (Auto) 0.7 L [place] # (Auto) 0.6 Eos # (Auto) 0.0 Baso # (Auto) 0.1 PT 14.3 H INR 1.3 APTT 26.1 Sodium 138 Potassium 5.2 H Chloride 106 Carbon Dioxide 24 Anion Gap 13 BUN 55 H Creatinine 1.6 H Est GFR ( Amer) 52 Est GFR (Non-Af Amer) 43 Random Glucose 121 H Calcium 8.9 Total Bilirubin 0.3 AST 44 ALT 31 Alkaline Phosphatase 55 Troponin I 0.0390 Total Protein 6.3 Albumin 3.3 L D Globulin 2.9 Albumin/Globulin Ratio 1.1 Assessment & Plan - Assessment and Plan (Free Text) Plan: 72 year old male PMH ascending aortic aneurysm repair, recurrent epistaxis, HTN, HLD, hypothyroidism, seen in the ED earlier this morning for epistaxis s/p ligation of two arteries two weeks ago with rebleed (rhinorockets placed today), presents this evening for generalized weakness and near fall due to acute massive bright red blood per rectum. Patient BP triage was 75 systolic, H/H d ropped from 7.4/21.6 to 6.1/18.1 - to note this was prior to second episode of large BRBPR and fluids. BUN elevated 55 from 29 this morning, INR 1.3. GIB ACUTE BLOOD LOSS ANEMIA EPISTAXIS HYPOTENSION - pt presented after several episodes and continuous oozing BRBPR, hypotension, awake, alert. - received 2 UNITS O NEG PRBC and 3L NS, normotensive at present (4 units crossmatched on deck) - continue protonix drip - CTA AP pending - GI Consult: Dr. Garcia - discussed, possibly secondary to large epistaxis, continue HD support. Team will rediscuss once CTA AP and repeat CBC completed. - R Femoral central line placed in ED - CBC Q4 hours
[2018-07-19] MEDS ORDERED: Lidocaine PF 2% (5 ml) Inj (For Cardiac Arrhy) ONE (18:45)
[2018-07-19] MEDS ORDERED: Iodixanol 320 MG/ML 100 ML BOTTLE IV ONE (19:48)
[2018-07-19] MEDS ORDERED: Sodium Chloride 0.9% 50 ML IV ONE (19:48)
[2018-07-19 20:03] LABS: ANISOCYTOSIS SLIGHT; LYMPHOCYTE 4 % (20-50); MONOCYTE 4 % (0-10); NEUTROPHIL 92 % (42-75); PLATELET ESTIMATE NORMAL (NORMAL); TOTAL CELLS COUNTED 100
[2018-07-19] MEDS: Dextrose 5%/0.45% NS 1,000 ML IV SCH (20:19)
[2018-07-19 21:29] LABS: HEMOGLOBIN 7.7 g/dL (12.0-18.0); MEAN CELL VOLUME 89.4 fl (80.0-94.0); MEAN CORPUSCULAR HEMOGLOBIN 30.8 pg (27.0-31.0); MEAN CORPUSCULAR HGB CONC 34.5 g/dL (33.0-37.0); RBC 2.5 Mil/uL (4.40-5.90); WHITE BLOOD COUNT 12.4 K/uL (4.8-10.8)
[2018-07-20 03:14] LABS: SQUAMOUS EPITHIAL < 1 /hpf (0-5); URINE BILIRUBIN NEGATIVE (NEGATIVE); URINE BLOOD NEGATIVE (NEGATIVE); URINE CLARITY CLEAR (Clear); URINE COLOR YELLOW (YELLOW); URINE GLUCOSE (UA) NEG (Normal); URINE LEUKOCYTE ESTERASE NEG Leu/uL (Negative); URINE PROTEIN NEGATIVE (NEGATIVE); URINE UROBILINOGEN 0.2-1.0 mg/dL (0.2-1.0)
[2018-07-20 05:35] LABS: HEMOGLOBIN 8.5 g/dL (12.0-18.0); MEAN CELL VOLUME 87.3 fl (80.0-94.0); MEAN CORPUSCULAR HGB CONC 35.5 g/dL (33.0-37.0); RBC 2.75 Mil/uL (4.40-5.90); WHITE BLOOD COUNT 12.4 K/uL (4.8-10.8)
[2018-07-20 07:49] LABS: BLOOD UREA NITROGEN 43 mg/dl (9-20); CALCIUM 8.1 mg/dL (8.4-10.2); GFR NON-AFRICAN AMERICAN > 60
--- NOTE | 2018-07-20 07:51 | CP.CCUPN ---
CCU Subjective - Physician Review Subjective (Free Text): 07/20/18 18:28 The patient was Seen/interviewed and examined by me at the bedside, Medical records reviewed and Management issues were discussed and formulated with the house staff. Events reviewed Mr Bowman is a 72 Years old Male with PMHx of HTN, Hypercholesterolemia, Hypothyroidism (thyroidectomy thyroid cancer), Peripheral Edema, Anemia, Colonic Polyps, Pneumonia (1989) and S/P ascending aortic aneurysm repair Who presented to the Emergency department yesterday for recurrent epistaxis and rectal bleeding Pt also repored he fell to ground while trying to walk due to generalized weakness, no head injury, no LOC. Nasal packing done in ER Patient with recurrent epistaxis, underwent ligation of two arteries two weeks ago Initially hypotensive with H/H dropped to 6.1/18.1 He received total 3 units Packed RBC so far No active bleeding today Afebrile Clinically and hemodynamically improved CCU Objective - Vital Signs / Intake & Output Vital Signs (Last 4 hours): Vital Signs Temp Pulse Resp BP Pulse Ox 07/20/18 04:00 99.1 F 82 23 129/87 100 Intake and Output (Last 8hrs): Intake & Output 07/19/18 07/20/18 07/20/18 22:59 06:59 14:59 Intake Total 145 425 Output Total 400 Balance 145 25 Weight 150 lb 186 lb Intake: IV 145 Blood Product 325 Red Blood Cells Cpd As1 325 Lr Unit [id number] Other 100 Red Blood Cells Cpd As1 100 Lr Unit [id number] Output: Urine 400 Urine, Voided 400 Other: # Bowel Movements 1 2 - Physical Exam Head: Positive for: Atraumatic, Normocephalic. Negative for: Tenderness, Contusion, Swelling Extroacular Muscles: Positive for: EOMI Conjunctiva: Positive for: Normal Ears: Positive for: Normal Mouth: Positive for: Moist Mucous Membranes Pharnyx: Positive for: Normal. Negative for: ERYTHEMA Nose (External): Positive for: Other (Nasal packing in place) Nose (Internal): Positive for: Normal Inspection Neck: Positive for: Normal Range of Motion, Trachea Midline. Negative for: Meningeal Signs, MIDLINE TENDERNESS, Paraspinal Tenderness, JVD, Lymphadenopathy, Bruit, Other Respiratory/Chest: Positive for: Clear to Auscultation, Good Air Exchange. Negative for: Respiratory Distress, Accessory Muscle Use, Wheezes, Rales, Rhonchi Cardiovascular: Positive for: Regular Rate and Rhythm, Normal S1, S2, Peripheal Pulses Present. Negative for: Tachycardic, Bradycardic Abdomen: Positive for: Normal Bowel Sounds. Negative for: Tenderness, Distention, Peritoneal Signs Back: Negative for: CVA Tenderness Upper Extremity: Positive for: Normal Inspection. Negative for: Cyanosis, Edema Lower Extremity: Positive for: Normal Inspection. Negative for: Edema, CALF TENDERNESS Neurological: Positive for: GCS=15, Speech Normal, Motor Func Grossly Intact Psychiatric: Positive for: Alert, Oriented x 3 - Medications Active Medications: Active Medications Generic Name Dose Route Start Last Admin Trade Name Freq PRN Reason Stop Dose Admin Dextrose/Sodium Chloride 1,000 mls @ 125 mls/hr 07/19/18 19:45 07/19/18 20:19 Dextrose 5%/0.45% Ns 1000 Ml IV 07/20/18 19:36 125 mls/hr .Q8H DEEPA Administration Iron Sucrose 200 mg/ Sodium 110 mls @ 110 mls/hr 07/20/18 07:46 Chloride IVPB 07/20/18 08:45 ONCE ONE Pantoprazole Sodium 40 mg 07/20/18 09:00 Protonix Inj IVP Q12 DEEPA - Patient Studies Lab Studies: Lab Studies 07/20/18 07/20/18 07/20/18 Range/Units 04:30 04:30 01:00 WBC 12.4 H (4.8-10.8) K/uL RBC 2.75 L (4.40-5.90) Mil/uL Hgb 8.5 L (12.0-18.0) g/dL Hct 24.0 L (35.0-51.0) % MCV 87.3 D (80.0-94.0) fl MCH 31.0 (27.0-31.0) pg MCHC 35.5 (33.0-37.0) g/dL RDW 15.0 H (11.5-14.5) % Plt Count 211 (130-400) K/uL MPV (7.2-11.7) fl Neut % (Auto) (50.0-75.0) % Lymph % (Auto) (20.0-40.0) % Navarro % (Auto) (0.0-10.0) % Eos % (Auto) (0.0-4.0) % Baso % (Auto) (0.0-2.0) % Neut # (Auto) (1.8-7.0) K/uL Lymph # (Auto) (1.0-4.3) K/uL [place]arro # (Auto) (0.0-0.8) K/uL Eos # (Auto) (0.0-0.7) K/uL Baso # (Auto) (0.0-0.2) K/uL Neutrophils % (Manual) (42-75) % Lymphocytes % (Manual) (20-50) % Monocytes % (Manual) (0-10) % Platelet Estimate (NORMAL) Anisocytosis (manual) PT (9.8-13.1) Seconds INR APTT (25.6-37.1) Seconds Sodium (132-148) mmol/l Potassium (3.6-5.0) MMOL/L Chloride (98-107) mmol/L Carbon Dioxide (22-30) mmol/L Anion Gap (10-20) BUN (9-20) mg/dl Creatinine (0.8-1.5) mg/dl Est GFR ( Amer) Est GFR (Non-Af Amer) Random Glucose (75-110) mg/dL Calcium (8.4-10.2) mg/dL Phosphorus 2.6 (2.5-4.5) mg/dl Magnesium 1.9 (1.6-2.3) MG/DL Total Bilirubin (0.2-1.3) mg/dl AST (17-59) U/L ALT (21-72) U/L Alkaline Phosphatase (38-126) U/L Troponin I 0.0270 (0.00-0.120) ng/mL Total Protein (6.3-8.2) G/DL Albumin (3.5-5.0) g/dL Globulin (2.2-3.9) gm/dL Albumin/Globulin Ratio (1.0-2.1) Urine Color (YELLOW) Urine Clarity (Clear) Urine pH (5.0-8.0) Ur Specific [place] (1.003-1.030) Urine Protein (NEGATIVE) mg/dL Urine Glucose (UA) (Normal) mg/dL Urine Ketones (NEGATIVE) mg/dL Urine Blood (NEGATIVE) Urine Nitrate (NEGATIVE) Urine Bilirubin (NEGATIVE) Urine Urobilinogen (0.2-1.0) mg/dL Ur Leukocyte Esterase (Negative) Brian/uL Urine RBC (Auto) (0-3) /hpf Urine Microscopic WBC (0-5) /hpf Ur Squamous Epith Cells (0-5) /hpf Blood Type Antibody Screen Crossmatch BBK History Checked 07/19/18 07/19/18 07/19/18 Range/Units 21:15 17:11 17:05 WBC 12.4 H (4.8-10.8) K/uL RBC 2.50 L (4.40-5.90) Mil/uL Hgb 7.7 L (12.0-18.0) g/dL Hct 22.3 L (35.0-51.0) % MCV 89.4 (80.0-94.0) fl MCH 30.8 (27.0-31.0) pg MCHC 34.5 (33.0-37.0) g/dL RDW 14.0 (11.5-14.5) % Plt Count 204 (130-400) K/uL MPV (7.2-11.7) fl Neut % (Auto) (50.0-75.0) % Lymph % (Auto) (20.0-40.0) % Navarro % (Auto) (0.0-10.0) % Eos % (Auto) (0.0-4.0) % Baso % (Auto) (0.0-2.0) % Neut # (Auto) (1.8-7.0) K/uL Lymph # (Auto) (1.0-4.3) K/uL [place] # (Auto) (0.0-0.8) K/uL Eos # (Auto) (0.0-0.7) K/uL Baso # (Auto) (0.0-0.2) K/uL Neutrophils % (Manual) (42-75) % Lymphocytes % (Manual) (20-50) % Monocytes % (Manual) (0-10) % Platelet Estimate (NORMAL) Anisocytosis (manual) PT 14.3 H (9.8-13.1) Seconds INR 1.3 APTT 26.1 (25.6-37.1) Seconds Sodium (132-148) mmol/l Potassium (3.6-5.0) MMOL/L Chloride (98-107) mmol/L Carbon Dioxide (22-30) mmol/L Anion Gap (10-20) BUN (9-20) mg/dl Creatinine (0.8-1.5) mg/dl Est GFR ( Amer) Est GFR (Non-Af Amer) Random Glucose (75-110) mg/dL Calcium (8.4-10.2) mg/dL Phosphorus (2.5-4.5) mg/dl Magnesium (1.6-2.3) MG/DL Total Bilirubin (0.2-1.3) mg/dl AST (17-59) U/L ALT (21-72) U/L Alkaline Phosphatase (38-126) U/L Troponin I (0.00-0.120) ng/mL Total Protein (6.3-8.2) G/DL Albumin (3.5-5.0) g/dL Globulin (2.2-3.9) gm/dL Albumin/Globulin Ratio (1.0-2.1) Urine Color Yellow (YELLOW) Urine Clarity Clear (Clear) Urine pH 5.0 (5.0-8.0) Ur Specific [place] 1.025 (1.003-1.030) Urine Protein Negative (NEGATIVE) mg/dL Urine Glucose (UA) Neg (Normal) mg/dL Urine Ketones Negative (NEGATIVE) mg/dL Urine Blood Negative (NEGATIVE) Urine Nitrate Negative (NEGATIVE) Urine Bilirubin Negative (NEGATIVE) Urine Urobilinogen 0.2-1.0 (0.2-1.0) mg/dL Ur Leukocyte Esterase Neg (Negative) Brian/uL Urine RBC (Auto) < 1 (0-3) /hpf Urine Microscopic WBC < 1 (0-5) /hpf Ur Squamous Epith Cells < 1 (0-5) /hpf Blood Type Antibody Screen Crossmatch BBK History Checked 07/19/18 07/19/18 07/19/18 Range/Units 17:05 17:05 17:05 WBC 13.6 H (4.8-10.8) K/uL RBC 2.02 L (4.40-5.90) Mil/uL Hgb 6.1 L* (12.0-18.0) g/dL Hct 18.1 L (35.0-51.0) % MCV 89.5 (80.0-94.0) fl MCH 30.4 (27.0-31.0) pg MCHC 34.0 (33.0-37.0) g/dL RDW 14.0 (11.5-14.5) % Plt Count 258 (130-400) K/uL MPV 8.3 (7.2-11.7) fl Neut % (Auto) 90.0 H (50.0-75.0) % Lymph % (Auto) 5.2 L (20.0-40.0) % Navarro % (Auto) 4.3 (0.0-10.0) % Eos % (Auto) 0.0 (0.0-4.0) % Baso % (Auto) 0.5 (0.0-2.0) % Neut # (Auto) 12.3 H (1.8-7.0) K/uL Lymph # (Auto) 0.7 L (1.0-4.3) K/uL Navarro # (Auto) 0.6 (0.0-0.8) K/uL Eos # (Auto) 0.0 (0.0-0.7) K/uL Baso # (Auto) 0.1 (0.0-0.2) K/uL Neutrophils % (Manual) 92 H (42-75) % Lymphocytes % (Manual) 4 L (20-50) % Monocytes % (Manual) 4 (0-10) % Platelet Estimate Normal (NORMAL) Anisocytosis (manual) Slight PT (9.8-13.1) Seconds INR APTT (25.6-37.1) Seconds Sodium 138 (132-148) mmol/l Potassium 5.2 H (3.6-5.0) MMOL/L Chloride 106 (98-107) mmol/L Carbon Dioxide 24 (22-30) mmol/L Anion Gap 13 (10-20) BUN 55 H (9-20) mg/dl Creatinine 1.6 H (0.8-1.5) mg/dl Est GFR ( Amer) 52 Est GFR (Non-Af Amer) 43 Random Glucose 121 H (75-110) mg/dL Calcium 8.9 (8.4-10.2) mg/dL Phosphorus (2.5-4.5) mg/dl Magnesium (1.6-2.3) MG/DL Total Bilirubin 0.3 (0.2-1.3) mg/dl AST 44 (17-59) U/L ALT 31 (21-72) U/L Alkaline Phosphatase 55 (38-126) U/L Troponin I 0.0390 (0.00-0.120) ng/mL Total Protein 6.3 (6.3-8.2) G/DL Albumin 3.3 L D (3.5-5.0) g/dL Globulin 2.9 (2.2-3.9) gm/dL Albumin/Globulin Ratio 1.1 (1.0-2.1) Urine Color (YELLOW) Urine Clarity (Clear) Urine pH (5.0-8.0) Ur Specific [place] (1.003-1.030) Urine Protein (NEGATIVE) mg/dL Urine Glucose (UA) (Normal) mg/dL Urine Ketones (NEGATIVE) mg/dL Urine Blood (NEGATIVE) Urine Nitrate (NEGATIVE) Urine Bilirubin (NEGATIVE) Urine Urobilinogen (0.2-1.0) mg/dL Ur Leukocyte Esterase (Negative) Brian/uL Urine RBC (Auto) (0-3) /hpf Urine Microscopic WBC (0-5) /hpf Ur Squamous Epith Cells (0-5) /hpf Blood Type A POSITIVE Antibody Screen Negative Crossmatch See Detail BBK History Checked Patient has bt Laboratory Results - last 24 hr 07/19/18 07/19/18 07/19/18 17:05 17:05 17:05 WBC 13.6 H RBC 2.02 L Hgb 6.1 L* Hct 18.1 L MCV 89.5 MCH 30.4 MCHC 34.0 RDW 14.0 Plt Count 258 MPV 8.3 Neut % (Auto) 90.0 H Lymph % (Auto) 5.2 L Navarro % (Auto) 4.3 Eos % (Auto) 0.0 Baso % (Auto) 0.5 Neut # (Auto) 12.3 H Lymph # (Auto) 0.7 L [place]arro # (Auto) 0.6 Eos # (Auto) 0.0 Baso # (Auto) 0.1 Neutrophils % (Manual) 92 H Lymphocytes % (Manual) 4 L Monocytes % (Manual) 4 Platelet Estimate Normal Anisocytosis (manual) Slight PT INR APTT Sodium 138 Potassium 5.2 H Chloride 106 Carbon Dioxide 24 Anion Gap 13 BUN 55 H Creatinine 1.6 H Est GFR ( Amer) 52 Est GFR (Non-Af Amer) 43 Random Glucose 121 H Calcium 8.9 Phosphorus Magnesium Total Bilirubin 0.3 AST 44 ALT 31 Alkaline Phosphatase 55 Troponin I 0.0390 Total Protein 6.3 Albumin 3.3 L D Globulin 2.9 Albumin/Globulin Ratio 1.1 Urine Color Urine Clarity Urine pH Ur Specific [place] Urine Protein Urine Glucose (UA) Urine Ketones Urine Blood Urine Nitrate Urine Bilirubin Urine Urobilinogen Ur Leukocyte Esterase Urine RBC (Auto) Urine Microscopic WBC Ur Squamous Epith Cells Blood Type A POSITIVE Antibody Screen Negative Crossmatch See Detail BBK History Checked Patient has bt 07/19/18 07/19/18 07/19/18 17:05 17:11 21:15 WBC 12.4 H RBC 2.50 L Hgb 7.7 L Hct 22.3 L MCV 89.4 MCH 30.8 MCHC 34.5 RDW 14.0 Plt Count 204 MPV Neut % (Auto) Lymph % (Auto) Navarro % (Auto) Eos % (Auto) Baso % (Auto) Neut # (Auto) Lymph # (Auto) Navarro # (Auto) Eos # (Auto) Baso # (Auto) Neutrophils % (Manual) Lymphocytes % (Manual) Monocytes % (Manual) Platelet Estimate Anisocytosis (manual) PT 14.3 H INR 1.3 APTT 26.1 Sodium Potassium Chloride Carbon Dioxide Anion Gap BUN Creatinine Est GFR ( Amer) Est GFR (Non-Af Amer) Random Glucose Calcium Phosphorus Magnesium Total Bilirubin AST ALT Alkaline Phosphatase Troponin I Total Protein Albumin Globulin Albumin/Globulin Ratio Urine Color Yellow Urine Clarity Clear Urine pH 5.0 Ur Specific [place] 1.025 Urine Protein Negative Urine Glucose (UA) Neg Urine Ketones Negative Urine Blood Negative Urine Nitrate Negative Urine Bilirubin Negative Urine Urobilinogen 0.2-1.0 Ur Leukocyte Esterase Neg Urine RBC (Auto) < 1 Urine Microscopic WBC < 1 Ur Squamous Epith Cells < 1 Blood Type Antibody Screen Crossmatch BBK History Checked 07/20/18 07/20/18 07/20/18 01:00 04:30 04:30 WBC 12.4 H RBC 2.75 L Hgb 8.5 L Hct 24.0 L MCV 87.3 D MCH 31.0 MCHC 35.5 RDW 15.0 H Plt Count 211 MPV Neut % (Auto) Lymph % (Auto) Navarro % (Auto) Eos % (Auto) Baso % (Auto) Neut # (Auto) Lymph # (Auto) [place] # (Auto) Eos # (Auto) Baso # (Auto) Neutrophils % (Manual) Lymphocytes % (Manual) Monocytes % (Manual) Platelet Estimate Anisocytosis (manual) PT INR APTT Sodium Potassium Chloride Carbon Dioxide Anion Gap BUN Creatinine Est GFR ( Amer) Est GFR (Non-Af Amer) Random Glucose Calcium Phosphorus 2.6 Magnesium 1.9 Total Bilirubin AST ALT Alkaline Phosphatase Troponin I 0.0270 Total Protein Albumin Globulin Albumin/Globulin Ratio Urine Color Urine Clarity Urine pH Ur Specific [place] Urine Protein Urine Glucose (UA) Urine Ketones Urine Blood Urine Nitrate Urine Bilirubin Urine Urobilinogen Ur Leukocyte Esterase Urine RBC (Auto) Urine Microscopic WBC Ur Squamous Epith Cells Blood Type Antibody Screen Crossmatch BBK History Checked EKG/Cardiology Studies: Cardiology / EKG Studies 07/19/18 17:08 EKG [ELECTROCARDIOGRAM] Stat Comment: Mode Of Transportation: PORTABLE Reason For Exam: SOB Fingerstick Blood Sugar Results: 134 Review of Systems - Cardiovascular Cardiovascular: absent: As Per HPI, Acrocyanosis, Chest Pain, Chest Pain at Rest, Chest Pain with Activity, Claudication, Diaphoresis, Dyspnea, Dyspnea on Exertion, Edema, Irregular Heart Rhythm, Pain Radiating to Arm/Neck/Jaw, Leg Edema, Leg Ulcers, Lightheadedness, Orthopnea, Palpitations, Paroxysmal Nocturnal Dyspnea, Pedal Edema, Radiating Pain, Rapid Heart Rate, Slow Heart Rate, Syncope, Other, UNREMARKABLE - Respiratory Respiratory: absent: As Per HPI, Cough, Dyspnea, Hemoptysis, Dyspnea on Exertion, Wheezing, Snoring, Stridor, Pain on Inspiration, Chest Congestion, Excessive Mucous Production, Change in Mucous Color, Pain with Coughing, Other, UNREMARKABLE Critical Care Progress Note - Extremities/Vascular Does the Patient have a Central Venous Catheter?: No Does the Patient need a Central Venous Catheter?: No Does the Patient have a Ferraro Catheter?: No Does the Patient need a Ferraro Catheter?: No - Nutrition Nutrition: Nutrition Category Date Time Status NPO Diet [DIET] Diets 07/19/18 Breakfast Active Assessment/Plan (1) Recurrent epistaxis Current Visit: No Status: Acute Priority: High (2) Acute GI bleeding Current Visit: Yes Status: Acute Priority: High (3) Symptomatic anemia Current Visit: Yes Status: Acute Priority: High - Assessment and Plan (Free Text) Assessment: Admit to ICU sec to hemodynamic instability (orthostatic hypotension, hypotension, tachycardia) - Rhinorockets placed in the ER, No active Epistaxis currently - Two large bore peripheral catheters - Suplemental O2 - NPO - Volume resuscitation - Hold antihypertensives - IV Hydration, with SODIUM CHLORIDE 0.9% INJ @ 150 ml/hr - IV PANTOPRAZOLE - Serial CBCs q 8 /HR - Transfused 3U packed RBC so far - Active type and screen sent today - ENT and GI evaluation called. - DVT PPx: SCD
[2018-07-20] MEDS: Dextrose 5%/0.45% NS 1,000 ML IV SCH (08:27)
--- NOTE | 2018-07-20 08:47 | CP.PCM.PN ---
Addendum entered and electronically signed by Faye Ramírez MD 07/20/18 12:43: Patient seen and examined bedside . All chart and clinical data review . Case discussed with resident . Agree with assessment and plan. Patient feeling better . With BM this morning without any bleeding s/p 3 unit PBC transfsuion and Hgb 8.5 today Hemodynamically stable, not tachycardic , pale Bleeding scan showed no bleed As per GI will need no emergency colonoscopy or EGD ( last EGD and colonoscopy was in [address] [email or web address] Started full liquid diet and monitor closely . If tolerating and no more bleeding episodes will d/c home Will give venofeR IV Original Note: Subjective - Date & Time of Evaluation Date of Evaluation: 07/20/18 Time of Evaluation: 09:15 - Subjective Subjective: S/p 3 units of PRBC overnight. H/H stable post transfusion. Pt seen and examined by bedside this AM. Endorsing fatigue but better then prev iously. Large BBM yesterday, had small BM this morning non-bloody per pt. Denies abdominal pain, n/v. Objective - Vital Signs/Intake and Output Vital Signs (last 24 hours): Temp Pulse Resp BP Pulse Ox 99.1 F 79 18 144/74 100 07/20/18 08:00 07/20/18 08:00 07/20/18 08:00 07/20/18 08:00 07/20/18 04:00 Intake and Output: 07/20/18 07/20/18 06:59 18:59 Intake Total 570 Output Total 400 Balance 170 - Medications Medications: Current Medications Dextrose/Sodium Chloride (Dextrose 5%/0.45% Ns 1000 Ml) 1,000 mls @ 125 mls/hr IV .Q8H DEEPA Stop: 07/20/18 19:36 Last Admin: 07/20/18 08:27 Dose: 125 mls/hr Iron Sucrose 200 mg/ Sodium (Chloride) 110 mls @ 110 mls/hr IVPB ONCE ONE Stop: 07/20/18 08:45 Pantoprazole Sodium (Protonix Inj) 40 mg IVP Q12 DEEPA Last Admin: 07/20/18 08:27 Dose: 40 mg - Labs Labs: 07/20/18 04:30 07/20/18 07:20 PT 14.3 Seconds (9.8-13.1) H 10/28/18 17:05 INR 1.3 07/19/18 17:05 APTT 26.1 Seconds (25.6-37.1) 07/19/18 17:05 - Constitutional Appears: No Acute Distress, Other (Pale has nasal packing b/l, dried blood noted ) - Eye Exam Eye Exam: EOMI - ENT Exam ENT Exam: Mucous Membranes Moist - Respiratory Exam Respiratory Exam: Clear to Ausculation Bilateral, NORMAL BREATHING PATTERN. ab sent: Wheezes - Cardiovascular Exam Cardiovascular Exam: REGULAR RHYTHM, +S1, +S2 - GI/Abdominal Exam GI & Abdominal Exam: Soft, Normal Bowel Sounds. absent: Tenderness - Extremities Exam Extremities Exam: Normal Inspection - Neurological Exam Neurological Exam: Alert, Awake, Oriented x3 - Skin Skin Exam: Pallor Assessment and Plan - Assessment and Plan (Free Text) Assessment: Assessment/Plan: 72 YO male PMHx of ascending aortic aneurysm repair, recurrent epistaxis, HTN, HLD, hypothyroidism, with massive epistaxis (s/p ligation of two arteries two weeks ago) with rebleed (rhinorockets placed today), presents this evening for generalized weakness and near fall due to acute massive bright red blood per rectum. Initially, pt was hypotensive and hb was 6.1. S/p 3 units of PRBC, currently h/h stable. Patient BP is responding to hydration and renal functions improving. Symptomatic anemia -acute upper GI/nasal bleed -s/p 3 units of PRBC, h/h stable post transfusion -GI consulted; no intervention at this time, likely due to epistaxis, follow up CTA, advance diet as tolerated -CTA of abd and pelvis neg for any source of GI bleeding VRAD -venofer today 200mg, c/w protonix Q12 -repeat cbc later today -follow up Epistaxis -acute on chronic -s/p ligation of two arteries two weeks ago -rhinorockets placed, hemostasis achieved -follow up ENT as outpatient Hypotension -s/p 3 units of PRBC and IVF hydation -bp improving -start labatalol 20mg IVP for systolic BP >150 prn -cont IVF -advance diet as tolerated MONO -improving -likely 2/2 to acute bleeding and dehydration -cont IVFs Hypothyrodism -chronic -will hold PO meds for now, will restart meds once tolerating diet DVT prophlyxis -large bleed -SCDs for now
--- NOTE | 2018-07-20 09:17 | RAD ---
Date of service: 07/19/2018 HISTORY: GIB COMPARISON: Chest radiographs 08/24/2017. FINDINGS: LUNGS: No active pulmonary disease. PLEURA: No significant pleural effusion identified, no pneumothorax apparent. CARDIOVASCULAR: No aortic atherosclerotic calcification present. Prominent cardiac silhouette stable. No pulmonary vascular congestion appreciated at this time. No pulmonary vascular congestion. OSSEOUS STRUCTURES: Sternotomy wires reiterated. VISUALIZED UPPER ABDOMEN: Normal. OTHER FINDINGS: None. IMPRESSION: Stable cardiomegaly. No pulmonary vascular congestion or airspace disease appreciated bilaterally.
[2018-07-20] MEDS ORDERED: Labetalol 5mg/ml (4ml) IVP PRN (11:01)
--- NOTE | 2018-07-20 11:01 | CT ---
PROCEDURE: CT Angiography Abdomen and Pelvis with and without intravenous contrast HISTORY: Lower GI bleed COMPARISON: None. TECHNIQUE: Contiguous axial images of the lower thorax, abdomen and pelvis were obtained in the phase of aortic enhancement. A noncontrast enhanced CT of the chest was also obtained to evaluate for possible intramural thrombus. Coronal and sagittal reformats were generated. IV dose administered: 95 cc Visipaque 320 Radiation dose: Total exam DLP = 470.8 mGy-cm. This CT exam was performed using one or more of the following dose reduction techniques: Automated exposure control, adjustment of the mA and/or kV according to patient size, and/or use of iterative reconstruction technique. FINDINGS: CT ANGIOGRAPHY OF THE CHEST WITH & WITHOUT CONTRAST: AORTA ABDOMEN: The thoracic and abdominal aorta are unremarkable, without aneurysm, dissection or rupture. No intramural thrombus identified in the thoracic aorta on the non-contrast ct of the chest. The celiac axis, superior mesenteric artery, inferior mesenteric artery and the renal arteries are widely patent. Atherosclerotic calcification and mural plaque present. Findings are seen throughout the aorta The pelvic arteries are unremarkable. CT ANGIOGRAPHY OF THE ABDOMEN AND PELVIS WITH CONTRAST: LIVER: Unremarkable. No gross lesion or ductal dilatation. GALLBLADDER AND BILE DUCTS: Cholelithiasis without CT evidence of acute cholecystitis. PANCREAS: Unremarkable. No gross lesion or ductal dilatation. SPLEEN: Unremarkable. ADRENALS: Unremarkable. No mass. KIDNEYS AND URETERS: Unremarkable. No hydronephrosis. No solid mass. Right parapelvic cysts. Hyperdense subcentimeter cyst left kidney. Multiple simple cysts bilaterally. VASCULATURE: Unremarkable. No aortic aneurysm. No aortic atherosclerotic calcification or mural plaque present. STOMACH AND BOWEL: Right inguinal hernia containing nondistended loops of small bowel without evidence of incarceration mechanical obstruction. Constipation without impaction. APPENDIX: No abnormalities to suggest acute appendicitis. No right lower quadrant inflammatory processes identified. PERITONEUM: Unremarkable. No free fluid. No free air. LYMPH NODES: Unremarkable. No enlarged lymph nodes. BLADDER: Unremarkable. REPRODUCTIVE: Unremarkable. BONES: No acute fracture. Grade 1 anterolisthesis L4-5. Symmetrical moderate degenerative changes both hips. OTHER FINDINGS: Venous access catheter identified left common femoral vein approach. Catheter tip is in the right common iliac. IMPRESSION: No evidence of aortic aneurysm or dissection. Unremarkable visceral arterial branches as visualized. Additional benign and/or incidental findings described above.
--- NOTE | 2018-07-20 11:01 | CARD ---
APPROVED REPORT Date of service: 07/19/2018 EKG Measurement Heart [id number] <Conclusion> Normal sinus rhythm Left anterior fascicular block Abnormal ECG
[2018-07-20 16:00] LABS: HEMOGLOBIN 8.3 g/dL (12.0-18.0); MEAN CELL VOLUME 89.1 fl (80.0-94.0); MEAN CORPUSCULAR HEMOGLOBIN 29.7 pg (27.0-31.0); MEAN CORPUSCULAR HGB CONC 33.3 g/dL (33.0-37.0); RBC 2.79 Mil/uL (4.40-5.90); RED CELL DISTRIBUTION WIDTH 15.5 % (11.5-14.5); WHITE BLOOD COUNT 13.5 K/uL (4.8-10.8)
[2018-07-21 06:09] LABS: BASO % 0.1 % (0.0-2.0); HEMOGLOBIN 8.6 g/dL (12.0-18.0); LYMPH # 0.7 K/uL (1.0-4.3); MEAN CELL VOLUME 88.4 fl (80.0-94.0); MEAN CORPUSCULAR HEMOGLOBIN 30.4 pg (27.0-31.0); MEAN CORPUSCULAR HGB CONC 34.4 g/dL (33.0-37.0); MEAN PLATELET VOLUME 7.2 fl (7.2-11.7); MONO # 0.7 K/uL (0.0-0.8); MONO % 4.1 % (0.0-10.0); NEUT # 15.6 K/uL (1.8-7.0); NEUT % 91.8 % (50.0-75.0); PLATELET COUNT 224 K/uL (130-400); RBC 2.81 Mil/uL (4.40-5.90); RED CELL DISTRIBUTION WIDTH 15.3 % (11.5-14.5)
[2018-07-21] MEDS ORDERED: Levothyroxine 175 MCG TAB PO SCH (06:30)
[2018-07-21 06:40] LABS: BLOOD UREA NITROGEN 28 mg/dl (9-20); CALCIUM 8.6 mg/dL (8.4-10.2); GFR NON-AFRICAN AMERICAN > 60
[2018-07-21 08:29] VITALS: O2SAT 95
[2018-07-21 08:50] LABS: ANISOCYTOSIS SLIGHT; LYMPHOCYTE 6 % (20-50); MONOCYTE 3 % (0-10); NEUTROPHIL 91 % (42-75); PLATELET ESTIMATE NORMAL (NORMAL); TOTAL CELLS COUNTED 100
[2018-07-21 08:51] LABS: HYPOCHROMIC SLIGHT
--- NOTE | 2018-07-21 09:18 | CON ---
DATE: 07/20/2018 REFERRING PHYSICIAN: . REASON FOR CONSULTATION: Clot in the rectum. HISTORY OF PRESENT ILLNESS: This is a 72-year-old man, status post AAA repair, had recurrent epistaxis came in for significant epistaxis of the naris, had recent ligation of two arteries prior to this episode and has marked bleeding again noted blood in the stool as well as clot to the rectum, . The patient is currently lying in bed comfortable, in no apparent distress. PAST MEDICAL HISTORY: As above. PAST SURGICAL HISTORY: As above. MEDICATIONS: Have been reviewed. REVIEW OF SYSTEMS: All other systems have been reviewed and negative apart from the HPI. PHYSICAL EXAMINATION: VITAL SIGNS: In the hospital, grossly unremarkable. GENERAL: Pleasant middle-aged male, lying in bed comfortably, in no apparent distress. HEENT: Normocephalic and atraumatic. Eyes, pupils are equally reactive to light bilaterally. No conjunctival pallor or icterus. NECK: Supple. Normal range of motion. No lymphadenopathy appreciated. LUNGS: Coarse breath sounds bilaterally. HEART: S1 and S2. Regular rate and rhythm. No murmurs appreciated. ABDOMEN: Soft. Nontender. Bowel sounds present. No rebound. No guarding. RECTAL: Deferred. EXTREMITIES: Pulses felt bilaterally. SKIN: Warm, dry and intact. NEUROLOGIC: A and O x3. LABORATORY DATA: Labs and radiology have been reviewed. WBC 12.4, hemoglobin 8.5, hematocrit 24, platelet count is normal. INR 1.3. Potassium 4. CAT scan is grossly unremarkable. ASSESSMENT AND PLAN: This is a 72-year-old male with recurrent epistaxis, looks like bleeding packing. Discussed with primary care team. Consider endoscopy urgently if bleeding; if not bleeding. Thank you for the consult. Galo Max MD/ PhD cc:
--- NOTE | 2018-07-21 09:50 | CP.PCM.PN ---
Subjective - Date & Time of Evaluation Date of Evaluation: 07/21/18 Time of Evaluation: 09:48 - Subjective Subjective: no overnight events Objective - Vital Signs/Intake and Output Vital Signs (last 24 hours): Temp Pulse Resp BP Pulse Ox 98.0 F 90 15 152/75 H 95 07/21/18 08:00 07/21/18 09:30 07/21/18 08:00 07/21/18 09:30 07/21/18 08:00 - Medications Medications: Current Medications Hydralazine HCl (Apresoline) 25 mg PO TID [facility] Last Admin: 07/21/18 09:30 Dose: 25 mg Iron Sucrose 100 mg/ Sodium (Chloride) 105 mls @ 105 mls/hr IVPB DAILY [facility] Labetalol HCl (Trandate) 20 mg IVP Q6 PRN PRN Reason: pressure Last Admin: 07/20/18 14:30 Dose: 20 mg Levothyroxine Sodium (Synthroid) 175 mcg PO DAILY@0630 [facility] Last Admin: 07/21/18 05:57 Dose: 175 mcg Losartan Potassium (Cozaar) 100 mg PO DAILY [facility] Last Admin: 07/21/18 09:30 Dose: 100 mg Pantoprazole Sodium (Protonix Inj) 40 mg IVP Q12 [facility] Last Admin: 07/21/18 09:30 Dose: 40 mg - Labs Labs: 07/21/18 06:00 07/21/18 06:00 PT 14.3 Seconds (9.8-13.1) H 07/19/18 17:05 INR 1.3 07/19/18 17:05 APTT 26.1 Seconds (25.6-37.1) 07/19/18 17:05 - Head Exam Head Exam: NORMOCEPHALIC - Neck Exam Neck Exam: Normal Inspection - Respiratory Exam Respiratory Exam: Clear to Ausculation Bilateral, NORMAL BREATHING PATTERN - Cardiovascular Exam Cardiovascular Exam: REGULAR RHYTHM - GI/Abdominal Exam GI & Abdominal Exam: Soft, Normal Bowel Sounds Assessment and Plan - Assessment and Plan (Free Text) Assessment: 72 yo male with epistaxis hgb stable ADAT outpatient endoscopic eval as indicated
--- NOTE | 2018-07-21 10:15 | CP.PCM.DIS ---
Provider - Provider Date of Admission: 07/19/18 19:21 Attending physician: Katie Jimenez DO Primary care physician: Dr Ellsworth Consults: GI consult Time Spent in preparation of Discharge (in minutes): 20 Hospital Course - Lab Results Lab Results: Most Recent Lab Values WBC 17.0 K/uL (4.8-10.8) H 07/21/18 06:00 RBC 2.81 Mil/uL (4.40-5.90) L 07/21/18 06:00 Hgb 8.6 g/dL (12.0-18.0) L 07/21/18 06:00 Hct 24.9 % (35.0-51.0) L 07/21/18 06:00 MCV 88.4 fl (80.0-94.0) 07/21/18 06:00 MCH 30.4 pg (27.0-31.0) 07/21/18 06:00 MCHC 34.4 g/dL (33.0-37.0) 07/21/18 06:00 RDW 15.3 % (11.5-14.5) H 07/21/18 06:00 Plt Count 224 K/uL (130-400) 07/21/18 06:00 MPV 7.2 fl (7.2-11.7) 07/21/18 06:00 Neut % (Auto) 91.8 % (50.0-75.0) H 07/21/18 06:00 Lymph % (Auto) 4.0 % (20.0-40.0) L 07/21/18 06:00 Tyrrell % (Auto) 4.1 % (0.0-10.0) 07/21/18 06:00 Eos % (Auto) 0.0 % (0.0-4.0) 07/21/18 06:00 Baso % (Auto) 0.1 % (0.0-2.0) 07/21/18 06:00 Neut # (Auto) 15.6 K/uL (1.8-7.0) H 07/21/18 06:00 Lymph # (Auto) 0.7 K/uL (1.0-4.3) L 07/21/18 06:00 Tyrrell # (Auto) 0.7 K/uL (0.0-0.8) 07/21/18 06:00 Eos # (Auto) 0.0 K/uL (0.0-0.7) 07/21/18 06:00 Baso # (Auto) 0.0 K/uL (0.0-0.2) 07/21/18 06:00 Neutrophils % (Manual) 91 % (42-75) H 07/21/18 06:00 Lymphocytes % (Manual) 6 % (20-50) L 07/21/18 06:00 Monocytes % (Manual) 3 % (0-10) 07/21/18 06:00 Platelet Estimate Normal (NORMAL) 07/21/18 06:00 Hypochromasia (manual) Slight 07/21/18 06:00 Anisocytosis (manual) Slight 07/21/18 06:00 PT 14.3 Seconds (9.8-13.1) H 07/19/18 17:05 INR 1.3 07/19/18 17:05 APTT 26.1 Seconds (25.6-37.1) 07/19/18 17:05 Sodium 143 mmol/l (132-148) 07/21/18 06:00 Potassium 3.6 MMOL/L (3.6-5.0) 07/21/18 06:00 Chloride 111 mmol/L (98-107) H 07/21/18 06:00 Carbon Dioxide 23 mmol/L (22-30) 07/21/18 06:00 Anion Gap 13 (10-20) 07/21/18 06:00 BUN 28 mg/dl (9-20) H 07/21/18 06:00 Creatinine 1.0 mg/dl (0.8-1.5) 07/21/18 06:00 Est GFR ( Amer) > 60 07/21/18 06:00 Est GFR (Non-Af Amer) > 60 07/21/18 06:00 POC Glucose (mg/dL) 134 mg/dL (65-110) H 07/19/18 17:02 Random Glucose 124 mg/dL (75-110) H 07/21/18 06:00 Calcium 8.6 mg/dL (8.4-10.2) 07/21/18 06:00 Phosphorus 2.6 mg/dl (2.5-4.5) 07/20/18 04:30 Magnesium 1.9 MG/DL (1.6-2.3) 07/20/18 04:30 Total Bilirubin 0.3 mg/dl (0.2-1.3) 07/19/18 17:05 AST 44 U/L (17-59) 07/19/18 17:05 ALT 31 U/L (21-72) 07/19/18 17:05 Alkaline Phosphatase 55 U/L (38-126) 07/19/18 17:05 Troponin I 0.0270 ng/mL (0.00-0.120) 07/20/18 01:00 Total Protein 6.3 G/DL (6.3-8.2) 07/19/18 17:05 Albumin 3.3 g/dL (3.5-5.0) L D 07/19/18 17:05 Globulin 2.9 gm/dL (2.2-3.9) 07/19/18 17:05 Albumin/Globulin Ratio 1.1 (1.0-2.1) 07/19/18 17:05 Urine Color Yellow (YELLOW) 07/19/18 17:11 Urine Clarity Clear (Clear) 07/19/18 17:11 Urine pH 5.0 (5.0-8.0) 07/19/18 17:11 Ur Specific Lolo 1.025 (1.003-1.030) 07/19/18 17:11 Urine Protein Negative mg/dL (NEGATIVE) 07/19/18 17:11 Urine Glucose (UA) Neg mg/dL (Normal) 07/19/18 17:11 Urine Ketones Negative mg/dL (NEGATIVE) 07/19/18 17:11 Urine Blood Negative (NEGATIVE) 07/19/18 17:11 Urine Nitrate Negative (NEGATIVE) 07/19/18 17:11 Urine Bilirubin Negative (NEGATIVE) 07/19/18 17:11 Urine Urobilinogen 0.2-1.0 mg/dL (0.2-1.0) 07/19/18 17:11 Ur Leukocyte Esterase Neg Brian/uL (Negative) 07/19/18 17:11 Urine RBC (Auto) < 1 /hpf (0-3) 07/19/18 17:11 Urine Microscopic WBC < 1 /hpf (0-5) 07/19/18 17:11 Ur Squamous Epith Cells < 1 /hpf (0-5) 07/19/18 17:11 Blood Type A POSITIVE 07/19/18 17:05 Antibody Screen Negative 07/19/18 17:05 Crossmatch See Detail 07/19/18 17:05 BBK History Checked Patient has bt 07/19/18 17:05 - Hospital Course Hospital Course: 72 Yy/o male patient with PMH of recurrent epistaxis with multiple cauterization procedures and recent arterial ligation with nasal packing in place, history of ascending aortic aneurysm repair, HTN, HLD, hypothyroidism presented with generalized weakness and near fall . Patient had massive epistaxis the day of presentation with packing placement . He also complained of massive bright blood per rectum. He was found to be hypotensive in ER with Hgb 6.1. Patient was admitted in ICU for management. He was started on IVF , transfused total of 3 unit PRBC and given Venofer IV .CT angio od abdomen ad pelvis showed no active bleed . GI was consulted and case was discussed . As per GI most likely rectal bleed is secondary to massive epistaxis but lower GI bleed can not be ruled out aso patient will need EGD and colonoscopy outpatient . There is no need for colonoscopy and EGD this admission since patient H&H remained stable post transfusion Hgb 8.6 with no recurrent rectal bleed. Patient clinically improved .Hemodynamically stable,afebrile with no more episodes of epistaxis or rectal bleed . BP better controlled so BP meds Losartan and Hydralazine were resumed holding his lasix and labetalol Patient tolerating Po diet well patient is medically cleared for discharge . Advised to follow up with his ENT sa soon as possible . 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 Given PRBC and Vemnofer. Continue Ferrous sulfate Po Epistaxis-- acute on chronic Hypotension secondary to volume depletion and acute bleeding -- acute , improved Acute kidney injury most likely prerenal due to volume depletion Azotemia Hypothyroidism- chronic on Synthroid Hypertension - chronic . Hold off labetalol and lasix on discharge and follow up with PMD. Continue hydralazine 25 mg PO TID and losrtan 100 mg po QD Dyslipidemia- on statin Discharge Exam - Head Exam Head Exam: ATRAUMATIC, NORMOCEPHALIC - Eye Exam Eye Exam: EOMI, Normal appearance, PERRL Pupil Exam: NORMAL ACCOMODATION - ENT Exam ENT Exam: Mucous Membranes Moist, Normal Exam - Neck Exam Neck exam: Full Rom, Normal Inspection - Respiratory Exam Respiratory Exam: Clear to PA & Lateral, NORMAL BREATHING PATTERN. absent: Rales, Rhonchi, Wheezes - Cardiovascular Exam Cardiovascular Exam: REGULAR RHYTHM, RRR, +S1, +S2. absent: JVD - GI/Abdominal Exam GI & Abdominal Exam: Normal Bowel Sounds, Soft. absent: Distended, Guarding, Rebound, Tenderness - Rectal Exam Rectal Exam: Deferred - Extremities Exam Extremities exam: normal capillary refill, normal inspection, pedal pulses present - Back Exam Back exam: NORMAL INSPECTION - Neurological Exam Neurological exam: Alert, CN II-XII Intact, Oriented x3, Reflexes Normal - Psychiatric Exam Psychiatric exam: Normal Affect, Normal Mood - Skin Skin Exam: Dry, Pallor, Warm Discharge Plan - Follow Up Plan Condition: STABLE Disposition: HOME/ ROUTINE Patient education suggested?: Yes Instructions: Normocytic Normochromic Anemia (DC), Nosebleeds (DC), Gastroi ntestinal Bleeding (DC) Referrals: Galo Max MD, PhD [Staff Provider] - Laureano Ellsworth MD [Family Provider] - Navneet Ortiz MD [Staff Provider] - Shane Arriola MD [Staff Provider] -
[2018-07-21 11:31] VITALS: RESP 16
[2018-07-21 12:43] VITALS: TEMP 98.4
[2018-07-21 15:19] VITALS: BP 145/62; PULSE 82
== END 2018-07-21 15:30 | disposition home or self-care (01) | DRG 812 ==
LOC: H.ER 16:55 → H.ERHOLD 19:21 → H.ICU/CCU 21:00
PROVIDERS: ADMIT Student in an Organized Health Care Education/Training Program; ATTEND Student in an Organized Health Care Education/Training Program
PROC: 30233N1 Transfusion of Nonautologous Red Blood Cells into Peripheral Vein, Percutaneous Approach (ICD-10-PCS; principal; 2018-07-19)
PROC: 06HM33Z Insertion of Infusion Device into Right Femoral Vein, Percutaneous Approach (ICD-10-PCS; 2018-07-19)
DX: D62 Acute posthemorrhagic anemia (principal); N17.9 Acute kidney failure, unspecified; I10 Essential (primary) hypertension; E89.0 Postprocedural hypothyroidism; R04.0 Epistaxis; Z85.850 Personal history of malignant neoplasm of thyroid; E78.00 Pure hypercholesterolemia, unspecified; E78.5 Hyperlipidemia, unspecified; I95.1 Orthostatic hypotension; E86.0 Dehydration; Z88.0 Allergy status to penicillin